=== PATIENT | male | born 1955 | race Caucasian/White ===

== ENCOUNTER 2016-11-07 09:28 | Emergency (ER) | payer BC ==
[2016-11-07 10:14] VITALS: BP 140/84
--- NOTE | 2016-11-07 10:30 | UC ---
Hand/Wrist HPI - HPI Summary HPI Summary: JAMMED RIGHT 3RD FINGER ON WOOD STOVE YESTERDAY MORNING WHILE FILLING IT. FINGER IS SWOLLEN AND PAINFUL. - History Of Current Complaint Chief Complaint: UCUpperExtremity Stated Complaint: FINGER INJURY Time Seen by Provider: 11/07/16 10:24 Hx Obtained From: Patient Onset/Duration: Sudden Onset, Lasting Hours, Still Present Severity Initially: Mild Severity Currently: Mild Pain Intensity: 1 Pain Scale Used: 0-10 Numeric Character Of Pain: Sharp Aggravating Factor(s): Movement Alleviating: Rest Associated Signs And Symptoms: Positive: Swelling, Redness Related History: Dominant Hand Right - Allergies/Home Medications Allergies/Adverse Reactions: Allergies Allergy/AdvReac Type Severity Reaction Status Date / Time Abatacept [From Orencia] Allergy Unknown SWELLING Verified 02/27/16 08:57 AROUND MOUTH NECK Levofloxacin [From Levaquin] Allergy Unknown ACHILLES Verified 02/27/16 08:57 TENDON RUPTURED Infliximab [From Remicade] Allergy SWELLING Verified 02/27/16 08:57 AROUND MOUTH & NECK PMH/Surg Hx/FS Hx/Imm Hx - Additional Past Medical History Additional PMH: RHEUMATOID ARTHRITIS, BPH Cardiovascular History Of: Denies: Pacemaker/ICD Neurological History Of: Reports: TIA - Xs 2 - 2008 ( MRI & CT DONE) - Surgical History Surgical History: Yes Surgery Procedure, Year, and Place: 3- INGUINAL HERNIA; CARPAL TUNNEL- Rt; ACHILLES TENDON REPAIR-Lt; TONSILECTOMY; - Family History Known Family History: Negative: Hypertension - Social History Alcohol Use: 3-4 beer/week Substance Use Type: None Smoking Status (MU): Never Smoked Tobacco Have You Smoked in the Last Year: No - Immunization History Most Recent Influenza Vaccination: 2016/2017 Review of Systems Constitutional: Negative Skin: Bruising Respiratory: Negative Cardiovascular: Negative Gastrointestinal: Negative Musculoskeletal: Arthralgia, Decreased ROM, Edema All Other Systems Reviewed And Are Negative: Yes Physical Exam Triage Information Reviewed: Yes Appearance: Well-Appearing, No Pain Distress, Well-Nourished Vital Signs: Initial Vital Signs Temp 97.8 F 11/07/16 10:06 Pulse 68 11/07/16 10:06 Resp 16 11/07/16 10:06 BP 140/84 11/07/16 10:06 Pulse Ox 99 11/07/16 10:06 Vital Signs Reviewed: Yes Eyes: Positive: Conjunctiva Clear ENT: Positive: Hearing grossly normal Neck: Positive: Supple Respiratory: Positive: No respiratory distress, No accessory muscle use Cardiovascular: Positive: Pulses Normal Abdomen Description: Positive: Soft Musculoskeletal: Positive: ROM Limited @ - RIGHT 3RD FINGER, Edema @ - RIGHT 3RD FINGER, Other: - TTP RIGHT 3RD FINGER OVER PROXIMAL PHALANX AND PIP JOINT Neurological: Positive: Alert Psychological: Positive: Age Appropriate Behavior Skin: Positive: Other - RIGHT 3RD FINGER ERYTHEMATOUS AND BRUISED. Negative: rashes Diagnostics - Radiology RIGHT 3RD FINGER XRAY Xray Interpretation: No Acute Changes Radiology Interpretation Completed By: ED Physician Hand/Wrist Course/Dx - Differential Dx/Diagnosis Provider Diagnoses: RIGHT 3RD FINGER SPRAIN Discharge - Discharge Plan Condition: Stable Disposition: HOME Patient Education Materials: Finger Sprain (ED) Referrals: Teressa Lemos MD [Primary Care Provider] - If Needed Additional Instructions: XRAY TODAY NEGATIVE FOR FRACTURE OR DISLOCATION ON MY INITIAL INTERPRETATION. WE WILL CALL YOU IF RADIOLOGY READ DIFFERS. WEAR SPLINT AT NIGHT AND DURING THE DAY NEEDED FOR COMFORT AND PROTECTION.
--- NOTE | 2016-11-07 11:08 | RAD ---
HISTORY: Trauma, swelling, right third digit trauma COMPARISONS: None VIEWS: 3, Frontal, lateral, and oblique views of the third digit of the right hand FINDINGS: BONE DENSITY: Normal. BONES: There is linear lucency, consistent with a nondisplaced fracture along the volar plate of the base of the middle phalanx of the third digit at the PIP joint. JOINTS: There is osteoarthritis of the DIP joint and MCP joints ALIGNMENT: There is no dislocation. SOFT TISSUES: Unremarkable. OTHER FINDINGS: None. IMPRESSION: 1. PROBABLE NONDISPLACED FRACTURE OF THE BASE OF THE MIDDLE PHALANX OF THE THIRD DIGIT AT THE PIP JOINT. 2. OSTEOARTHRITIS.
== END 2016-11-07 11:00 | disposition home or self-care (01) ==
LOC: UCEAST 09:28
DX: S63.632A Sprain of interphalangeal joint of right middle finger, initial encounter (principal); W23.1XXA Caught, crushed, jammed, or pinched between stationary objects, initial encounter; Y93.9 Activity, unspecified; Y92.9 Unspecified place or not applicable; M19.041 Primary osteoarthritis, right hand; Z88.1 Allergy status to other antibiotic agents; Z88.8 Allergy status to other drugs, medicaments and biological substances; M06.9 Rheumatoid arthritis, unspecified; N40.0 Benign prostatic hyperplasia without lower urinary tract symptoms
CPT/HCPCS: 73140; 99212; G0463

== ENCOUNTER 2017-03-04 15:32 | Emergency (ER) | payer BC ==
[2017-03-04 16:02] VITALS: BP 152/89
[2017-03-04] MEDS ORDERED: Ketorolac INJ* 30 MG/ML 1 ML VIAL IM ONE (16:06)
--- NOTE | 2017-03-04 16:25 | RAD ---
INDICATION: Right shoulder injury. TECHNIQUE: 3 views of the right shoulder were obtained. FINDINGS: The bones are in normal alignment. No fracture is seen. There is mild osteoarthritic change in the acromioclavicular joint. IMPRESSION: NO EVIDENCE OF FRACTURE.
--- NOTE | 2017-03-04 16:50 | UC ---
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 Pain with arm movement, denies any numbness, tingling, or weakness in R arm or hand. No hx of R shoulder fx or sx. - History of Current Complaint Chief Complaint: UCUpperExtremity Stated Complaint: SHOULDER INJURY Time Seen by Provider: 03/04/17 16:33 Hx Obtained From: Patient Onset/Duration: Sudden Onset Timing: Constant Severity Initially: Severe Severity Currently: Moderate Character: Dull, Aching, Stiffness Aggravating Factor(s): Movement, Lifting, Extension Alleviating Factor(s): Rest Associated Signs And Symptoms: Positive: Swelling, Bruising Related History: Dominant Hand Right - Allergies/Home Medications Allergies/Adverse Reactions: Allergies Allergy/AdvReac Type Severity Reaction Status Date / Time Abatacept [From Orencia] Allergy Unknown SWELLING Verified 03/04/17 16:02 AROUND MOUTH NECK Levofloxacin [From Levaquin] Allergy Unknown ACHILLES Verified 03/04/17 16:02 TENDON RUPTURED Infliximab [From Remicade] Allergy SWELLING Verified 03/04/17 16:02 AROUND MOUTH & NECK PMH/Surg Hx/FS Hx/Imm Hx Endocrine History Of: Denies: Diabetes Cardiovascular History Of: Denies: Cardiac Disorders, Hypertension, Pacemaker/ICD Respiratory History Of: Denies: COPD Neurological History Of: Reports: TIA - Xs - 2008 ( MRI & CT DONE) - Surgical History Surgical History: Yes Surgery Procedure, Year, and Place: 3- INGUINAL HERNIA; CARPAL TUNNEL- Rt; ACHILLES TENDON REPAIR-Lt; TONSILECTOMY; - Family History Known Family History: Negative: Hypertension - Social History Occupation: Employed Full-time Lives: With Family Alcohol Use: Occasionally Substance Use Type: None Smoking Status (MU): Never Smoked Tobacco Have You Smoked in the Last Year: No - Immunization History Most Recent Influenza Vaccination: 2015/2016 Review of Systems Constitutional: Negative Skin: Negative Eyes: Negative ENT: Negative Respiratory: Negative Cardiovascular: Negative Gastrointestinal: Negative Genitourinary: Negative Motor: Decreased ROM - R shoulder Neurovascular: Negative Musculoskeletal: Negative Neurological: Negative Psychological: Negative All Other Systems Reviewed And Are Negative: Yes Physical Exam Triage Information Reviewed: Yes Appearance: Well-Appearing, Well-Nourished, Pain Distress - mild Vital Signs: Initial Vital Signs Temp 99.2 F 03/04/17 15:57 Pulse 87 03/04/17 15:57 Resp 16 03/04/17 15:57 BP 152/89 03/04/17 15:57 Pulse Ox 99 03/04/17 15:57 Vital Signs Reviewed: Yes Eye Exam: Normal Eyes: Positive: Conjunctiva Clear ENT Exam: Normal ENT: Positive: Normal ENT inspection, Hearing grossly normal, Pharynx normal, TMs normal Dental Exam: Normal Neck exam: Normal Neck: Positive: Supple, Nontender, No Lymphadenopathy Respiratory Exam: Normal Respiratory: Positive: Chest non-tender, Lungs clear, Normal breath sounds, No respiratory distress, No accessory muscle use Cardiovascular Exam: Normal Cardiovascular: Positive: RRR Musculoskeletal Exam: Other Musculoskeletal: Positive: Strength Intact, ROM Intact - able to actively extend and abduct R shoulder, resisted R shoulder abduction intact, ROM with pain Neurological Exam: Normal Neurological: Positive: Alert Psychological Exam: Normal Skin Exam: Normal Shoulder Course/Dx - Differential Dx/Diagnosis Provider Diagnoses: R shoulder contusion Discharge - Discharge Plan Condition: Stable Disposition: HOME Patient Education Materials: Contusion in Adults (ED) Referrals: Teressa Lemos MD [Primary Care Provider] - Sidney Rey MD [Medical Doctor] - 1 Week Additional Instructions: As we discussed, you do not need any follow-up if your symptoms rapidly improve. If you are not able to resume your usual activities by the end of the weekend, I recommend you see the orthopedist listed here. Take the sling off frequently and let your arm go through a range of motion using gravity as I showed you. If you can, try to stop all sling use after 3 days.
== END 2017-03-04 16:55 | disposition home or self-care (01) ==
LOC: UCEAST 15:32
DX: S40.011A Contusion of right shoulder, initial encounter (principal); W20.8XXA Other cause of strike by thrown, projected or falling object, initial encounter; Y93.89 Activity, other specified; Y92.9 Unspecified place or not applicable; Z86.73 Personal history of transient ischemic attack (TIA), and cerebral infarction without residual deficits; Z88.8 Allergy status to other drugs, medicaments and biological substances
CPT/HCPCS: 99211; G0463; J1885

== ENCOUNTER 2017-08-27 11:26 | Day surgery (SDC) | payer BC ==
[~2017-08-27 11:26] MED LIST: Buffered Lidocaine 0.9% SYRIN* 5 ML/SYR SYRINGE INTRADERM ONE; Metoclopramide TAB* 10 MG ONE; Metoclopramide TAB* 10 MG PO ONE
[2017-08-27] MEDS ORDERED: Ondansetron INJ* 2 MG/ML VIAL ONE (12:13)
[2017-08-27] MEDS ORDERED: fentaNYL* 50 MCG/ML 2 ML VIAL (100 MCG VIAL) ONE (12:13)
[2017-08-27] MEDS ORDERED: Dexamethasone IV* 4 MG/ML 1 ML (4 MG) ONE (12:13)
[2017-08-27] MEDS ORDERED: Propofol* 10 MG/ML 20 ML BTL IV PUSH ONE (12:13)
[2017-08-27] MEDS ORDERED: Lidocaine 2% PF * 5 ML VIAL ONE (12:13)
[2017-08-27] MEDS ORDERED: Midazolam* 1 MG/ML 5 ML VIAL (5 MG) ONE (12:14)
[2017-08-27] MEDS ORDERED: Bupivacaine 0.25% SDV* 30 ML ONE (12:36)
[2017-08-27] MEDS ORDERED: fentaNYL* 50 MCG/ML 2 ML VIAL (100 MCG VIAL) IV PRN (12:51)
[2017-08-27] MEDS ORDERED: Ondansetron INJ* 2 MG/ML VIAL IV PRN (12:51)
[2017-08-27] MEDS ORDERED: oxyCODONE/Acetamin 5/325 MG* TAB PO PRN (12:51)
[2017-08-27 13:39] VITALS: BP 110/80
--- NOTE | 2017-08-28 02:52 | OP ---
OPERATIVE REPORT: DATE OF OPERATION: 08/27/17 - TIMO DATE OF : 53 SURGEON: Jeremy Reyez MD. ASSISTANTS: REGGIE Sierra. ANESTHESIOLOGIST: Dr. Espinal. ANESTHESIA: Local MAC. PRE-OP DIAGNOSIS: Left dorsal wrist cyst. POST-OP DIAGNOSIS: Left dorsal wrist cyst most consistent with an inclusion cyst. OPERATIVE PROCEDURE: Excision of left dorsal wrist deep cyst. ESTIMATED BLOOD LOSS: 2 mL. COMPLICATIONS: None. FINDINGS: Mass with sinus tract, it was draining some milky white fluid, it was most consistent with an inclusion cyst. DESCRIPTION OF PROCEDURE: Dany was seen in the preoperative holding area. The correct side, site, and procedure were identified. We came back to the operating room where he got some anesthesia. I then infiltrated the operative area with 0.25% plain Marcaine. The arm was prepped and draped in the usual fashion. A time- out was performed. I began by exsanguinating the arm with the Esmarch and the tourniquet was inflated to 250 mmHg. I then made a longitudinal 2 cm incision directly over the mass. The interval between the dermis and the cyst was identified. The reactive zone around the mass was identified and the mass was ellipsed out with a kotlik blade. It went down deep right in the region between the second and third dorsal compartment tendons. I went ahead and shelled it out. The mass was fully excised. It was handed off as a specimen. I then ellipsed out the skin where the sinus tract had been. The wound was copiously irrigated. The skin was closed with 4-0 nylon suture. The wound was dressed with Xeroform, 4x4 's, sterile Webril and an Randy bandage. The tourniquet was deflated. He was woken up and taken to the recovery room in stable condition. [id number]/[facility] #: [id number] MTDD
== END 2017-08-27 14:05 | disposition home or self-care (01) ==
LOC: OREAST 11:26
PROVIDERS: ATTEND Orthopaedic Surgery Hand Surgery
DX: L72.0 Epidermal cyst (principal); M06.9 Rheumatoid arthritis, unspecified; Z79.899 Other long term (current) drug therapy; M72.9 Fibroblastic disorder, unspecified; I48.91 Unspecified atrial fibrillation; I10 Essential (primary) hypertension
CPT/HCPCS: 88305; A9270-GY; J1100; J2250; J2405; J2704; J3010

== ENCOUNTER 2018-05-14 05:37 | Observation (INO) | payer BC ==
--- NOTE | 2018-05-14 06:00 | ED ---
HPI Chest Pain - HPI Summary HPI Summary: Pt is a 63 y/o M w/ c/o left-sided chest pain radiating to left shoulder and left side of neck. Pt notes pain onset yesterday morning and describes initial pain as slight. However, before going to bed, pain had worsened in the evening and more so upon waking up this morning. Pain is rated 5/10 on triage. He notes that deep breaths are painful but denies SOB. Pt reports getting out of bed in the morning as painful and notes lying down lessen pain somewhat. Pt states he slept fine. He denies nausea, diaphoresis, and light-headedness. 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 Pt uses marijuana but denies smoking cigarettes. - History of Current Complaint Chief Complaint: EDChestWallPain Time Seen by Provider: 05/14/18 05:52 Onset/Duration: Started Days Ago - one day ago in the morning, Worse Since Timing: Constant Initial Severity: Mild Current Severity: Moderate Pain Intensity: 5 Pain Scale Used: 0-10 Numeric - 5/10 Chest Pain Radiates: Yes Chest Pain Radiates To:: Shoulder - left, Neck - leftside Character: Other: - deep breaths cause pain Aggravating Factor(s): Other: - deep breaths, getting out of bed Alleviating Factor(s): Position - lying in a supine position Associated Signs and Symptoms: Positive: Chest Pain - leftside, Other: - Pain from getting out of bed and deep breaths. Chest pain radiates to left shoulder and left side of neck.. Negative: Shortness of Breath, Lightheadedness, Diaphoresis, Nausea - Allergy/Home Medications Allergies/Adverse Reactions: Allergies Allergy/AdvReac Type Severity Reaction Status Date / Time abatacept [From Orencia] Allergy Unknown Verified 05/14/18 05:44 Reaction Details infliximab [From Remicade] Allergy Unknown Verified 05/14/18 05:45 Reaction Details levofloxacin [From Levaquin] Allergy Unknown Verified 05/14/18 05:44 Reaction Details PMH/Surg Hx/FS Hx/Imm Hx Endocrine/Hematology History: Denies: Hx Diabetes Cardiovascular History: Denies: Hx Hypertension, Hx Pacemaker/ICD Respiratory History: Reports: Other Respiratory Problems/Disorders - Hx of bronchitis and pericarditis Denies: Hx Chronic Obstructive Pulmonary Disease (COPD) GI History: Reports: Hx Gastroesophageal Reflux Disease - ON MEDICATION FOR, Hx Hiatal Hernia, Other GI Disorders - 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 Musculoskeletal History: Reports: Hx Arthritis - HANDS, RIGHT GREAT TOE Denies: Hx Scoliosis Sensory History: Reports: Hx Cataracts - BILATERAL, Hx Contacts or Glasses - READING GLASSES Denies: Hx Hearing Aid Opthamlomology History: Reports: Hx Cataracts - BILATERAL, Hx Contacts or Glasses - READING GLASSES Neurological History: Reports: Hx Transient Ischemic Attacks (TIA) - Xs 2 - 2008 ( MRI & CT DONE) Denies: Hx Headaches, Other Neuro Impairments/Disorders Psychiatric History: Denies: Hx Panic Disorder - Surgical History Surgery Procedure, Year, and Place: 3- INGUINAL HERNIA; CARPAL TUNNEL- Rt; ACHILLES TENDON REPAIR-Lt; TONSILECTOMY; Hx Anesthesia Reactions: No Infectious Disease History: No Infectious Disease History: Denies: Hx Clostridium Difficile, Hx Hepatitis, Hx Human Immunodeficiency Virus (HIV), Hx of Known/Suspected MRSA, Hx Shingles, Hx Tuberculosis, Traveled Outside the [place] in Last 30 Days - Family History Known Family History: Negative: Hypertension - Social History Alcohol Use: Daily Alcohol Amount: @2 beers daily Substance Use Type: Reports: Marijuana Substance Use Comment - Amount & Last Used: ONCE IN A WHILE-LAST USED 05/07/18 Smoking Status (MU): Never Smoked Tobacco Have You Smoked in the Last Year: No Review of Systems Negative: Skin Diaphoresis Positive: Other - leftside chest pain radiating to left shoulder and left side of neck Positive: Other - pain from deep breaths . Negative: Shortness Of Breath Negative: Nausea Positive: Other - pain from getting out of bed Neurological: Other - NEGATIVE: light-headedness All Other Systems Reviewed And Are Negative: Yes Physical Exam - Summary Physical Exam Summary: Appearance: Well-appearing, Well-nourished, lying in bed comfortably Skin: Warm, dry, no obvious rash Eyes: sclera anicteric, no conjunctival pallor ENT: mucous membranes moist, pharynx appears normal Neck: Supple, nontender Respiratory: Clear to auscultation, no signs of respiratory distress Cardiovascular: Normal S1, S2. No murmurs. Normal distal pulses in tibial and radial bilaterally. Abdomen: Soft, nontender, normal active bowel sounds present Musculoskeletal: Normal, Strength/ROM Intact. No tenderness to chest wall. Neurological: A&Ox3, awake and alert, mentation is normal, speech is fluent and appropriate Psychiatric: affect is normal, does not appear anxious or depressed Triage Information Reviewed: Yes Vital Signs On Initial Exam: Initial Vitals Temp Pulse Resp BP Pulse Ox 98.1 F 83 17 160/104 98 05/14/18 05:40 05/14/18 05:40 05/14/18 05:40 05/14/18 05:40 05/14/18 05:40 Vital Signs Reviewed: Yes Diagnostics - Vital Signs Vital Signs Temp Pulse Resp BP Pulse Ox 05/14/18 05:41 84 23 160/104 96 05/14/18 05:40 98.1 F 83 17 160/104 98 - Laboratory Result Diagrams: 05/14/18 06:13 Lab Statement: Any lab studies that have been ordered have been reviewed, and results considered in the medical decision making process. - EKG 0541 Cardiac Rate: NL EKG Rhythm: Sinus Rhythm EKG Interpretation: Rate of 84 BPM. Normal EKG Discharge - Discharge Plan Referrals: Teressa Lemos MD [Primary Care Provider] -
--- OUTSIDE RECORDS SUMMARY | 2018-05-14 06:16 | XMS REPORT | Continuity of Care Document ---
:1955 Author Organization [facility] Care Team Providers Name Role Phone KATHRYN SINGH Admitting Physician KATHRYN SINGH Attending Physician JUSTIN COLLINS Primary Care Physician Allergies and Intolerances Code Code Allergy Type Reaction Severity Start End Date Status System Substance Date 10892 RXNorm Levofloxacin Drug Unknown Active allergy (disorder) Medications RxNorm Medication Dose Route Instructions Start Date End Date Status 1191 Aspirin 81 mg oral orally every day Active 590674 Finasteride 1 MG 1 mg oral orally every day Active Oral Tablet 081407 Folic Acid 1 MG 1 mg oral orally every day Active Oral Tablet 296976 lansoprazole 15 MG 15 mg oral orally every day Active Delayed Release Oral Capsule 6858 Methotrexate 12.5 mg oral orally every week Active Cephalexin Oral 500 mg oral orally every 12 Completed hours (7 days) Problems Code Code System Problem Name Start Date End Date Status 86130587 SNOMED-CT Rheumatoid arthritis Active 7974526 SNOMED-CT Pericarditis U Active carpal tunnel surgery left Active achilles tendon repair U Active Procedures Code Code System Procedure Date 40742825 SNOMED CT Hernia repair U 86630985 SNOMED CT Tonsillectomy and adenoidectomy U Results No data in the system Social History Code Code System Social History Observation Description Dates Observed 874878132 SNOMED CT Current Smoking Status Never smoker UNK AdministrativeGender Sex Assigned At Unknown Vital Signs Code Code System Vitals Value Date 8310-5 LOINC Body Temperature 98.1 [degF] 04/30/2018 8865-8 LOINC Pulse Rate 70 {beats}/min 04/30/2018 9279-1 LOINC Respiratory Rate 18 /min 04/30/2018 32314-1 INC O2% BldC Oximetry 95 % 04/30/2018 8480-6 INC BP Systolic 153 mm[Hg] 04/30/2018 8462-4 INC BP Diastolic 80 mm[Hg] 04/30/2018 8302-2 INC Height 70 [in_i] 04/30/2018 74621-0 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 Supporting Document Name Address Phone No Directive Type 04/30/2018 8:40:00 Not Specified Not Specified Not Specified None No specified AM *RHIO - CONSENT IS YES Directive Type Effective Date Finishing Room Supervisor Notes Supporting Document Name Address Phone No Directive Type 04/22/2018 Not Specified Not Specified Not Specified None No specified 10:38:54 AM Family History Family History Unknown Functional Status Code Functional Condition Code System Date Status Independent adls SNOMED CT 04/30/2018 Active Appears well nourished/hydrated SNOMED CT 04/30/2018 Active Immunizations Vaccine Code Code System Vaccine Name Date Status 115 CVX tetanus toxoid, reduced diphtheria 03/02/2012 Completed toxoid, and acellular pertussis vaccine, adsorbed 115 CVX tetanus toxoid, reduced diphtheria 04/22/2018 Completed toxoid, and acellular pertussis vaccine, adsorbed Medical Equipment No data in the system Mental Status Code Cognitive Condition Code System Date Status Perrl SNOMED CT 04/30/2018 Active Oriented x [address] 04/30/2018 Active No acute distress SNOMED CT 04/30/[address] 04/30/2018 Active Assessment and Plan Assessments No data in the systemPlan Of Treatment No data in the systemPending Tests No data in the system Hospital Discharge Instructions No data in the system Reason for Visit Reason for Visit Suture Removal
--- OUTSIDE RECORDS SUMMARY | 2018-05-14 06:16 | XMS REPORT | Continuity of Care Document ---
:1955 Author Organization [facility] Care Team Providers Name Role Phone KATHRYN SINGH Admitting Physician KATHRYN SINGH Attending Physician JUSTIN COLLINS Primary Care Physician Allergies and Intolerances Code Code Allergy Type Reaction Severity Start End Date Status System Substance Date 45068 RXNorm Levofloxacin Drug Unknown Active allergy (disorder) Medications RxNorm Medication Dose Route Instructions Start Date End Date Status 1191 Aspirin 81 mg oral orally every day Active Cephalexin Oral 500 mg oral orally every 12 Active hours (7 days) 359226 Finasteride 1 MG 1 mg oral orally every day Active Oral Tablet 905987 Folic Acid 1 MG 1 mg oral orally every day Active Oral Tablet 225423 lansoprazole 15 MG 15 mg oral orally every day Active Delayed Release Oral Capsule 6851 Methotrexate 12.5 mg oral orally every week Active Problems Code Code System Problem Name Start Date End Date Status 39712956 SNOMED-CT Rheumatoid arthritis Active 6950162 SNOMED-CT Pericarditis U Active carpal tunnel surgery left Active achilles tendon repair U Active Procedures Code Code System Procedure Date 86552475 SNOMED CT Hernia repair U 31210279 SNOMED CT Tonsillectomy and adenoidectomy U Results No data in the system Social History Code Code System Social History Observation Description Dates Observed 758276335 SNOMED CT Current Smoking Status Never smoker UNK AdministrativeGender Sex Assigned At Unknown Vital Signs Code Code System Vitals Value Date 8865-8 LOINC Pulse Rate 93 {beats}/min 04/22/2018 8480-6 LOINC BP Systolic 135 mm[Hg] 04/22/2018 8462-4 LOINC BP Diastolic 90 mm[Hg] 04/22/2018 8310-5 LOINC Body Temperature 97.4 [degF] 04/22/2018 9279-1 LOINC Respiratory Rate 20 /min 04/22/2018 8302-2 LOINC Height 70 [in_i] 04/22/2018 15336-7 LOINC Weight 84.09 kg 04/22/2018 3140-1 LOINC Body surface area Derived from formula 2.02 m2 04/22/2018 00223-0 LOINC BMI (Body Mass Index) 26.8 kg/m2 04/22/2018 Goals Section No data in the system Health Concerns No data in the systemEncounter Diagnosis Date Code Code System Diagnosis Status S51.011A ICD10 LACERATION W/O FB RT ELBOW INITIAL Active Advance Directives PT STATES NO ADVANCE DIRECTIVES Directive Type Effective Date Leasing Assistant Notes Supporting Document Name Address Phone No Directive Type 04/22/2018 Not Specified Not Specified Not Specified None No specified 10:55:00 AM *RHIO - CONSENT IS YES Directive Type Effective Date Leasing Assistant Notes Supporting Document Name Address Phone No Directive Type 04/22/2018 Not Specified Not Specified Not Specified None No specified 10:38:54 AM Family History No data in the system Functional Status No data in the system Immunizations Vaccine Code Code System Vaccine Name Date Status 115 CVX tetanus toxoid, reduced diphtheria 03/02/2012 Completed toxoid, and acellular pertussis vaccine, adsorbed 115 CVX tetanus toxoid, reduced diphtheria 04/22/2018 Completed toxoid, and acellular pertussis vaccine, adsorbed Medical Equipment No data in the system Mental Status Code Cognitive Condition Code System Date Status Mild distress SNOMED CT 04/22/[address] 04/22/2018 Active Assessment and Plan Assessments No data in the systemPlan Of Treatment No data in the systemPending Tests No data in the system Hospital Discharge Instructions No data in the system Reason for Visit Reason for Visit Elbow Abrasion
--- OUTSIDE RECORDS SUMMARY | 2018-05-14 06:17 | XMS REPORT ---
:1955 External Reference #:[id number] Author Organization [email or web address] Address [address] [address] [place] [address] [place] [address] Phone [phone] Care Team Providers Name Role Phone Teressa Masters MD Primary Care Physician Unavailable Payers Type Date Identification Numbers Payment Provider Subscriber Commercial Effective: Policy Number: BS Facets Dorothy Read 2011 [id number] PayID: [id number] [address] [address] [place] [address] Problems Date Description Provider Status Onset: 02/20/2011 Rheumatoid arthritis William Tay M.D. Active Note: Very high grade involvement resistant to tx, with pericardial involvement leading to A fib. Good response to Rittuximab, last tx May 2012 Onset: 09/28/2012 Medications Systems Tester (Current) Use William Tay M.D. Active Encounter Onset: 12/23/2012 Acute pericarditis William Tay M.D. Active Onset: 12/23/2012 Amnesia William Tay M.D. 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 Active myelopathy Onset: 10/06/2014 Taking medication William Tay M.D. Active Onset: 10/06/2014 Fasciitis William Tay M.D. Active Onset: 10/01/2015 Rheumatoid arthritis of multiple Zsofia Valente, ANIMAL BIOLOGIST Active joints Onset: 03/29/2015 Brachial neuritis Timo Singh M.D. 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 [employer] ETOH Use Denies alcohol use Smoking Patient has never smoked Recreational Drug Use Denies Drug Use Exercise Type/Frequency Exercises sporadically Allergies, Adverse Reactions, Alerts Date Description Reaction Status Severity Comments 12/26/2010 Levaquin ACHILLES TENDON RUPTURED active Moderate to Severe 12/26/2010 Remicade SWELLING active Moderate to Severe 12/26/2010 Orencia SWELLING active Moderate to Severe Medications Medication Date Status Form Strength Qnty SIG Indications Ordering Provider Tramadol Active Tablets 37.5-325mg 30tabs 1-2 tab Jeremy Hydrochloride/A 017 by mouth MD Dereje cetaminophen every 4-6 hours as needed Methotrexate Active Tablets 2.5mg 60tabs Take 5 Z79.899 Zsofia 015 Tablets Valente, Once ANIMAL BIOLOGIST Weekly M05.69 M06.89 Flector 10/06/2014 Active Patches 1.3% 180units prn 729.4 William Tay M.D. Folic Acid 12/26/2010 Active Tablets 1mg 90tabs Take 1 Z79.899 Zsofia Tablet Valente, Daily ANIMAL BIOLOGIST Asa Active 81mg 30units 1 po qd Unknown Fish Oil Active Capsules 1000mg 30caps 1 po qd William Tay M.D. Finasteride Active Tablets 5mg 90tabs 1 po qd Unknown Osteo Bi-Flex Active Tablets 2 tabs po Unknown Triple Strength daily With 5-Loxin Prostate Active Capsules 2 caps po Unknown Therapy Complex daily Lansoprazole Active Capsules 15mg 90caps Take [address] Capsule Valente, Daily ANIMAL BIOLOGIST Rituxan 01/05/2017 - Hx Solution 500mg/ [id number] Not Z79.899 Zsofia 07/16/2017 50ML Taking AT Valente, This Time ANIMAL BIOLOGIST M06.89 M05.69 Methotrexate 03/19/2016 - Hx Tablets 2.5mg 20tabs 5 tbs by Kenroy 04/02/2016 mouth once Mary, every week Tete Augmentin 02/01/2016 - Hx Tablets 500-125m 20tabs 1 tab by Zsofia 04/03/2016 g mouth Valente, ANIMAL BIOLOGIST twice a day with food for 10 days Augmentin 11/23/2015 - Hx Tablets 500-125m 20tabs 1 tab by Zsofia 12/31/2015 g mouth Valente, ANIMAL BIOLOGIST twice a day with food for 10 days Fluticasone 11/23/2015 - Hx Suspension 50mcg/Ac 16gm 1 act each Zsofia Propionate 12/31/2015 t nostril Valente, ANIMAL BIOLOGIST twice daily Methotrexate 12/26/2010 - Hx Tablets 2.5mg 65tabs 5 tabs 1x 714 Zsofia 03/16/2015 per week .0 Valente ANIMAL BIOLOGIST Rituxan 12/26/2010 - Hx Concentrate 10mg/ml [id number] 1000mg iv Z79 William 01/05/2017 every 2 .89 Endo, M.D. weeks for 9 2 doses ( q 8 - 9 mo) M06.89 Omeprazole - Hx Capsules DR 20mg 90caps 1 po qd Unknown 03/28/2015 Prostrat - Hx Unknown 03/15/2013 Uroxatral - Hx Tablets ER 24HR 10mg 1 tab po qd Unknown 08/25/2013 Osteobioflex - Hx Unknown 03/15/2013 Immunizations CPT Code Status Date Vaccine Lot # [id number] Given 07/16/2017 Influenza Virus Vaccine, Quadrivalent, Split, [id number] Preservative Free [id number] Given 01/05/2017 Zoster (Zostavax) [id number] Given 10/06/2016 Pneumonia Vaccine [id number] 53725 Given 10/01/2015 Pneumococcal Conjugate Vaccine 13 Valent For [id number] Intramuscular Use [id number] Given 08/25/2013 Flu Vaccine Split Virus Preservative Free For [id number] Indiv [id number] Older Vital Signs Date Vital Result Comment 04/29/2018 Weight 185.25 lb Heart Rate 86 /min BP Systolic Sitting 134 mmHg BP Diastolic Sitting 90 mmHg 01/25/2018 Weight 190.00 lb Heart Rate 85 /min BP Systolic Sitting 124 mmHg BP Diastolic Sitting 82 mmHg O2 % BldC Oximetry 98 % 10/19/2017 Height 70 inches 5'10" Weight 189.00 lb Heart Rate 74 /min BP Systolic Sitting 128 mmHg BP Diastolic Sitting 78 mmHg Respiratory Rate 14 /min Pain Level 1 BMI (Body Mass Index) 27.1 kg/m2 10/02/2017 Height 70 inches 5'10" Weight 185.00 lb Heart Rate 72 /min Respiratory Rate 16 /min Body Temperature 97.1 F Pain Level 0 BMI (Body Mass Index) 26.5 kg/m2 09/09/2017 Height 70 inches 5'10" Weight 185.00 lb BP Systolic 112 mmHg BP Diastolic 72 mmHg Body Temperature 97.1 F Pain Level 0 BMI (Body Mass Index) 26.5 kg/m2 08/31/2017 Height 70 inches 5'10" Weight 185.00 lb Heart Rate 77 /min BP Systolic 131 mmHg BP Diastolic 89 mmHg Body Temperature 97.6 F BMI (Body Mass Index) 26.5 kg/m2 07/29/2017 Height 69.5 inches 5'9.50" Weight 188.00 lb Heart Rate 84 /min BP Systolic 117 mmHg BP Diastolic 84 mmHg Respiratory Rate 17 /min Body Temperature 97.4 F BMI (Body Mass Index) 27.4 kg/m2 07/16/2017 Weight 188.50 lb Heart Rate 65 /min BP Systolic Sitting 120 mmHg BP Diastolic Sitting 80 mmHg Pain Level 0 O2 % BldC Oximetry 92 % 04/13/2017 Height 69.50 inches 5'9.50" Weight 180.25 lb Heart Rate 73 /min BP Systolic 120 mmHg BP Diastolic 80 mmHg O2 % BldC Oximetry 98 % BMI (Body Mass Index) 26.2 kg/m2 01/05/2017 Height 69.50 inches 5'9.50" Weight 188.19 lb Heart Rate 76 /min BP Systolic 124 mmHg BP Diastolic 80 mmHg Pain Level 2 BMI (Body Mass Index) 27.4 kg/m2 10/06/2016 Height 69.50 inches 5'9.50" Weight 193.44 lb Heart Rate 68 /min BP Systolic 120 mmHg BP Diastolic 70 mmHg O2 % BldC Oximetry 98 % 1.5 BMI (Body Mass Index) 28.2 kg/m2 07/04/2016 Height 69.50 inches 5'9.50" Weight 186.00 lb Heart Rate 80 /min BP Systolic Sitting 130 mmHg BP Diastolic Sitting 80 mmHg Body Temperature 97.4 F Pain Level 0 BMI (Body Mass Index) 27.1 kg/m2 04/03/2016 Height 69.50 inches 5'9.50" Weight 183.00 lb Heart Rate 70 /min BP Systolic Sitting 138 mmHg BP Diastolic Sitting 80 mmHg Body Temperature 97.3 F Pain Level 1 BMI (Body Mass Index) 26.6 kg/m2 12/31/2015 Height 69.50 inches 5'9.50" Weight 185.00 lb Heart Rate 82 /min BP Systolic 119 mmHg BP Diastolic 82 mmHg Body Temperature 97.6 F O2 % BldC Oximetry 99 % BMI (Body Mass Index) 26.9 kg/m2 10/01/2015 Height 69.50 inches 5'9.50" Weight 183.00 lb Heart Rate 72 /min BP Systolic Sitting 134 mmHg BP Diastolic Sitting 80 mmHg Pain Level 0 BMI (Body Mass Index) 26.6 kg/m2 06/28/2015 Height 69.50 inches 5'9.50" Weight 178.00 lb Heart Rate 82 /min BP Systolic Sitting 118 mmHg BP Diastolic Sitting 74 mmHg Pain Level 0 BMI (Body Mass Index) 25.9 kg/m2 05/25/2015 Height 69.50 inches 5'9.50" Weight 179.00 lb Heart Rate 60 /min BP Systolic Sitting 130 mmHg BP Diastolic Sitting 90 mmHg Body Temperature 97.1 F Pain Level 0 BMI (Body Mass Index) 26.1 kg/m2 03/29/2015 Height 69.50 inches 5'9.50" Weight 177.00 lb Heart Rate 76 /min BP Systolic Sitting 140 mmHg BP Diastolic Sitting 80 mmHg Pain Level 0 BMI (Body Mass Index) 25.8 kg/m2 03/28/2015 Height 69.50 inches 5'9.50" Weight 180.00 lb Heart Rate 72 /min BP Systolic Sitting 136 mmHg BP Diastolic Sitting 80 mmHg Pain Level 1 BMI (Body Mass Index) 26.2 kg/m2 12/29/2014 Height 69.50 inches 5'9.50" Weight 176.38 lb Heart Rate 66 /min BP Systolic Sitting 118 mmHg BP Diastolic Sitting 70 mmHg Pain Level 0 BMI (Body Mass Index) 25.7 kg/m2 10/06/2014 Height 69.50 inches 5'9.50" Weight 178.00 lb Heart Rate 66 /min BP Systolic Sitting 142 mmHg BP Diastolic Sitting 64 mmHg Pain Level 0 BMI (Body Mass Index) 25.9 kg/m2 07/14/2014 Height 69.50 inches 5'9.50" Weight 172.00 lb Heart Rate 54 /min BP Systolic 118 mmHg BP Diastolic 80 mmHg Pain Level 0 BMI (Body Mass Index) 25.0 kg/m2 05/04/2014 Height 69.50 inches 5'9.50" Weight 176.00 lb Heart Rate 80 /min BP Systolic Sitting 124 mmHg BP Diastolic Sitting 80 mmHg Pain Level 0 BMI (Body Mass Index) 25.6 kg/m2 02/09/2014 Height 69.50 inches 5'9.50" Weight 175.75 lb Heart Rate 88 /min BP Systolic Sitting 116 mmHg BP Diastolic Sitting 74 mmHg BMI (Body Mass Index) 25.6 kg/m2 11/17/2013 Height 69.50 inches 5'9.50" Weight 173.25 lb Heart Rate 78 /min BP Systolic Sitting 126 mmHg BP Diastolic Sitting 78 mmHg BMI (Body Mass Index) 25.2 kg/m2 08/25/2013 Height 69.50 inches 5'9.50" Weight 175.25 lb Heart Rate 80 /min BP Systolic Sitting 128 mmHg BP Diastolic Sitting 86 mmHg BMI (Body Mass Index) 25.5 kg/m2 06/03/2013 Weight 173.00 lb Heart Rate 78 /min BP Systolic Sitting 130 mmHg BP Diastolic Sitting 78 mmHg 04/08/2013 Weight 177.00 lb Heart Rate 76 /min BP Systolic 110 mmHg BP Diastolic 70 mmHg Respiratory Rate 12 /min 03/17/2013 Height 66 inches 5'6" Weight 165.00 lb Heart Rate 74 /min BP Systolic Sitting 134 mmHg BP Diastolic Sitting 72 mmHg BMI (Body Mass Index) 26.6 kg/m2 03/15/2013 Heart Rate 78 /min BP Systolic Sitting 130 mmHg BP Diastolic Sitting 88 mmHg Respiratory Rate 18 /min 12/23/2012 Height 66 inches 5'6" Weight 171.00 lb Heart Rate 70 /min BP Systolic Sitting 130 mmHg BP Diastolic Sitting 74 mmHg BMI (Body Mass Index) 27.6 kg/m2 09/28/2012 Height 66 inches 5'6" Weight 177.00 lb Heart Rate 76 /min BP Systolic Sitting 130 mmHg BP Diastolic Sitting 72 mmHg BMI (Body Mass Index) 28.6 kg/m2 06/11/2012 Height 66 inches 5'6" Weight 174.00 lb Heart Rate 74 /min BP Systolic Sitting 134 mmHg BP Diastolic Sitting 79 mmHg BMI (Body Mass Index) 28.1 kg/m2 04/30/2012 Height 66 inches 5'6" Heart Rate 70 /min BP Systolic Sitting 124 mmHg BP Diastolic Sitting 68 mmHg 03/25/2012 Height 66 inches 5'6" Weight 170.50 lb Heart Rate 71 /min BP Systolic Sitting 127 mmHg BP Diastolic Sitting 73 mmHg BMI (Body Mass Index) 27.5 kg/m2 01/01/2012 Weight 172.00 lb Heart Rate 68 /min BP Systolic 132 mmHg BP Diastolic 74 mmHg 10/02/2011 Height 69 inches 5'9" Weight 171.00 lb Heart Rate 72 /min BP Systolic Sitting 122 mmHg BP Diastolic Sitting 80 mmHg BMI (Body Mass Index) 25.2 kg/m2 07/03/2011 Height 69 inches 5'9" Weight 166.00 lb Heart Rate 84 /min BP Systolic 116 mmHg BP Diastolic 70 mmHg BMI (Body Mass Index) 24.5 kg/m2 02/20/2011 Height 69 inches 5'9" Weight 171.00 lb Heart Rate 68 /min BP Systolic 120 mmHg BP Diastolic 80 mmHg BMI (Body Mass Index) 25.2 kg/m2 12/26/2010 Height 69 inches 5'9" Weight 173.00 lb Heart Rate 80 /min BP Systolic 110 mmHg BP Diastolic 70 mmHg BMI (Body Mass Index) 25.5 kg/m2 Results Test Date Test Result H/L Range Note CBC Auto Diff 04/21/2018 White Blood Count 5.3 10^3/uL 3.5-10.8 Red Blood Count 4.91 10^6/uL 4.00-5.40 Hemoglobin 16.5 g/dL 14.0-18.0 Hematocrit 47 % 42-52 Mean Corpuscular Volume 96 fL High 80-94 Mean Corpuscular Hemoglobin 34 pg High 27-31 Mean Corpuscular HGB Conc 35 g/dL 31-36 Red Cell Distribution Width 14 % 10.5-15 Platelet Count 174 10^3/uL 150-450 Mean Platelet Volume 8.9 um3 7.4-10.4 Abs Neutrophils 3.7 10^3/uL 1.5-7.7 Abs Lymphocytes 1.1 10^3/uL 1.0-4.8 Abs Monocytes 0.5 10^3/uL 0-0.8 Abs Eosinophils 0 10^3/uL 0-0.6 Abs Basophils 0 10^3/uL 0-0.2 Abs Nucleated RBC 0 10^3/uL Granulocyte % 69.4 % 38-83 Lymphocyte % 20.3 % Low 25-47 Monocyte % 9.1 % High 0-7 Eosinophil % 0.6 % 0-6 Basophil % 0.6 % 0-2 Nucleated Red Blood Cells % 0.1 Comp Metabolic Panel 04/21/2018 Sodium 137 mmol/L 135-145 Potassium 4.5 mmol/L 3.5-5.0 Chloride 104 mmol/L 101-111 Co2 Carbon Dioxide 25 mmol/L 22-32 Anion Gap 8 mmol/L 2-11 Glucose 99 mg/dL 70-100 Blood Urea Nitrogen 16 mg/dL 6-24 Creatinine 0.91 mg/dL 0.67-1.17 BUN/Creatinine Ratio 17.6 8-20 Calcium 9.7 mg/dL 8.6-10.3 Total Protein 6.6 g/dL 6.4-8.9 Albumin 4.7 g/dL 3.2-5.2 Globulin 1.9 g/dL Low 2-4 Albumin/Globulin Ratio 2.5 1-3 Total Bilirubin 1.20 mg/dL High 0.2-1.0 Alkaline Phosphatase 63 U/L 34-104 Alt 34 U/L 7-52 Ast 35 U/L 13-39 Egfr Non- 84.1 >60 Egfr 108.2 >60 1 Laboratory test finding 04/21/2018 C Reactive Protein < 1.00 mg/L <8.01 Erythrocyte Sed Rate 2 mm/Hr 0-20 CBC Auto Diff 01/18/2018 White Blood Count 5.7 10^3/uL 3.5-10.8 Red Blood Count 4.77 10^6/uL 4.0-5.4 Hemoglobin 15.8 g/dL 14.0-18.0 Hematocrit 46 % 42-52 Mean Corpuscular Volume 96 fL High 80-94 Mean Corpuscular Hemoglobin 33 pg High 27-31 Mean Corpuscular HGB Conc 35 g/dL 31-36 Red Cell Distribution Width 13 % 10.5-15 Platelet Count 171 10^3/uL 150-450 Mean Platelet Volume 9 um3 7.4-10.4 Abs Neutrophils 4.0 10^3/uL 1.5-7.7 Abs Lymphocytes 1.1 10^3/uL 1.0-4.8 Abs Monocytes 0.6 10^3/uL 0-0.8 Abs Eosinophils 0 10^3/uL 0-0.6 Abs Basophils 0 10^3/uL 0-0.2 Abs Nucleated RBC 0 10^3/uL Granulocyte % 69.2 % 38-83 Lymphocyte % 19.9 % Low 25-47 Monocyte % 9.7 % High 0-7 Eosinophil % 0.6 % 0-6 Basophil % 0.6 % 0-2 Nucleated Red Blood Cells % 0.1 Comp Metabolic Panel 01/18/2018 Sodium 138 mmol/L 133-145 Potassium 4.5 mmol/L 3.5-5.0 Chloride 104 mmol/L 101-111 Co2 Carbon Dioxide 29 mmol/L 22-32 Anion Gap 5 mmol/L 2-11 Glucose 88 mg/dL 70-100 Blood Urea Nitrogen 14 mg/dL 6-24 Creatinine 0.94 mg/dL 0.67-1.17 BUN/Creatinine Ratio 14.9 8-20 Calcium 9.6 mg/dL 8.6-10.3 Total Protein 6.3 g/dL Low 6.4-8.9 Albumin 4.5 g/dL 3.2-5.2 Globulin 1.8 g/dL Low 2-4 Albumin/Globulin Ratio 2.5 1-3 Total Bilirubin 0.90 mg/dL 0.2-1.0 Alkaline Phosphatase 68 U/L 34-104 Alt 23 U/L 7-52 Ast 23 U/L 13-39 Egfr Non- 81.1 >60 Egfr 104.2 >60 2 Laboratory test finding 01/18/2018 Erythrocyte Sed Rate 3 mm/Hr 0-20 C Reactive Protein < 1.00 mg/L < 5.00 3 CBC Auto Diff 10/13/2017 White Blood Count 5.5 10^3/uL 3.5-10.8 Red Blood Count 4.73 10^6/uL 4.0-5.4 Hemoglobin 15.5 g/dL 14.0-18.0 Hematocrit 46 % 42-52 Mean Corpuscular Volume 97 fL High 80-94 Mean Corpuscular Hemoglobin 33 pg High 27-31 Mean Corpuscular HGB Conc 34 g/dL 31-36 Red Cell Distribution Width 13 % 10.5-15 Platelet Count 181 10^3/uL 150-450 Mean Platelet Volume 9 um3 7.4-10.4 Abs Neutrophils 3.5 10^3/uL 1.5-7.7 Abs Lymphocytes 1.3 10^3/uL 1.0-4.8 Abs Monocytes 0.6 10^3/uL 0-0.8 Abs Eosinophils 0.1 10^3/uL 0-0.6 Abs Basophils 0.1 10^3/uL 0-0.2 Abs Nucleated RBC 0 10^3/uL Granulocyte % 62.9 % 38-83 Lymphocyte % 24.0 % Low 25-47 Monocyte % 11.1 % High 1-9 Eosinophil % 1.1 % 0-6 Basophil % 0.9 % 0-2 Nucleated Red Blood Cells % 0 Comp Metabolic Panel 10/13/2017 Sodium 136 mmol/L 133-145 Potassium 4.2 mmol/L 3.5-5.0 Chloride 103 mmol/L 101-111 Co2 Carbon Dioxide 29 mmol/L 22-32 Anion Gap 4 mmol/L 2-11 Glucose 88 mg/dL 70-100 Blood Urea Nitrogen 18 mg/dL 6-24 Creatinine 0.95 mg/dL 0.67-1.17 BUN/Creatinine Ratio 18.9 8-20 Calcium 8.9 mg/dL 8.6-10.3 Total Protein 6.1 g/dL Low 6.4-8.9 Albumin 4.4 g/dL 3.2-5.2 Globulin 1.7 g/dL Low 2-4 Albumin/Globulin Ratio 2.6 1-3 Total Bilirubin 1.10 mg/dL High 0.2-1.0 Alkaline Phosphatase 63 U/L 34-104 Alt 37 U/L 7-52 Ast 35 U/L 13-39 Egfr Non- 80.1 >60 Egfr 103.0 >60 4 Laboratory test finding 10/13/2017 C Reactive Protein < 1.00 mg/L < 5.00 5 Erythrocyte Sed Rate 3 mm/Hr 0-20 Laboratory test 08/27/2017 Surgical Pathology SEE RESULT BELOW 6, 7 finding CBC W/Auto Diff 06/29/2017 White Blood Count 6.6 10^3/uL 3.5-10.8 Red Blood Count 4.69 10^6/uL 4.0-5.4 Hemoglobin 15.7 g/dL 14.0-18.0 Hematocrit 46 % 42-52 Mean Corpuscular Volume 97 fL High 80-94 Mean Corpuscular Hemoglobin 33 pg High 27-31 Mean Corpuscular HGB Conc 34 g/dL 31-36 Red Cell Distribution Width 14 % 10.5-15 Platelet Count 170 10^3/uL 150-450 Mean Platelet Volume 9 um3 7.4-10.4 Abs Neutrophils 4.7 10^3/uL 1.5-7.7 Abs Lymphocytes 1.1 10^3/uL 1.0-4.8 Abs Monocytes 0.7 10^3/uL 0-0.8 Abs Eosinophils 0 10^3/uL 0-0.6 Abs Basophils 0.1 10^3/uL 0-0.2 Abs Nucleated RBC 0 10^3/uL Granulocyte % 70.8 % 38-83 Lymphocyte % 17.0 % Low 25-47 Monocyte % 10.6 % High 1-9 Eosinophil % 0.7 % 0-6 Basophil % 0.9 % 0-2 Nucleated Red Blood Cells % 0 CMP Panel 06/29/2017 Sodium 136 mmol/L 133-145 Potassium 4.5 mmol/L 3.5-5.0 Chloride 104 mmol/L 101-111 Co2 Carbon Dioxide 29 mmol/L 22-32 Anion Gap 3 mmol/L 2-11 Glucose 88 mg/dL 70-100 Blood Urea Nitrogen 17 mg/dL 6-24 Creatinine 0.89 mg/dL 0.67-1.17 BUN/Creatinine Ratio 19.1 8-20 Calcium 9.6 mg/dL 8.6-10.3 Total Protein 6.4 g/dL 6.4-8.9 Albumin 4.5 g/dL 3.2-5.2 Globulin 1.9 g/dL Low 2-4 Albumin/Globulin Ratio 2.4 1-3 Total Bilirubin 1.10 mg/dL High 0.2-1.0 Alkaline Phosphatase 71 U/L 34-104 Alt 26 U/L 7-52 Ast 30 U/L 13-39 Egfr Non- 86.3 >60 Egfr 111.0 >60 8 Laboratory test finding 06/29/2017 Erythrocyte Sed Rate 2 mm/Hr 0-20 9 C Reactive Protein 1.25 mg/L < 5.00 10 CBC Auto Diff 04/01/2017 White Blood Count 6.0 10^3/uL 3.5-10.8 Red Blood Count 5.03 10^6/uL 4.0-5.4 Hemoglobin 16.3 g/dL 14.0-18.0 Hematocrit 48 % 42-52 Mean Corpuscular Volume 96 fL High 80-94 Mean Corpuscular Hemoglobin 32 pg High 27-31 Mean Corpuscular HGB Conc 34 g/dL 31-36 Red Cell Distribution Width 13 % 10.5-15 Platelet Count 171 10^3/uL 150-450 Mean Platelet Volume 10 um3 7.4-10.4 Abs Neutrophils 3.9 10^3/uL 1.5-7.7 Abs Lymphocytes 1.1 10^3/uL 1.0-4.8 Abs Monocytes 0.8 10^3/uL 0-0.8 Abs Eosinophils 0.1 10^3/uL 0-0.6 Abs Basophils 0.1 10^3/uL 0-0.2 Abs Nucleated RBC 0.04 10^3/uL Granulocyte % 65.7 % 38-83 Lymphocyte % 18.3 % Low 25-47 Monocyte % 13.7 % High 1-9 Eosinophil % 1.2 % 0-6 Basophil % 1.1 % 0-2 Nucleated Red Blood Cells % 0.6 Comp Metabolic Panel 04/01/2017 Sodium 137 mmol/L 133-145 Potassium 4.2 mmol/L 3.5-5.0 Chloride 102 mmol/L 101-111 Co2 Carbon Dioxide 30 mmol/L 22-32 Anion Gap 5 mmol/L 2-11 Glucose 63 mg/dL Low 70-100 Blood Urea Nitrogen 12 mg/dL 6-24 Creatinine 0.94 mg/dL 0.67-1.17 BUN/Creatinine Ratio 12.8 8-20 Calcium 9.3 mg/dL 8.6-10.3 Total Protein 6.3 g/dL Low 6.4-8.9 Albumin 4.5 g/dL 3.2-5.2 Globulin 1.8 g/dL Low 2-4 Albumin/Globulin Ratio 2.5 1-3 Total Bilirubin 0.80 mg/dL 0.2-1.0 Alkaline Phosphatase 73 U/L 34-104 Alt 30 U/L 7-52 Ast 25 U/L 13-39 Egfr Non- 81.3 >60 Egfr 104.6 >60 11 Laboratory test finding 04/01/2017 Erythrocyte Sed Rate 4 mm/Hr 0-20 C Reactive Protein 1.08 mg/L < 5.00 12 CBC W/Auto Diff 12/29/2016 White Blood Count 8.2 10^3/uL 3.5-10.8 Red Blood Count 4.62 10^6/uL 4.0-5.4 Hemoglobin 15.1 g/dL 14.0-18.0 Hematocrit 44 % 42-52 Mean Corpuscular Volume 95 fL High 80-94 Mean Corpuscular Hemoglobin 33 pg High 27-31 Mean Corpuscular HGB Conc 34 g/dL 31-36 Red Cell Distribution Width 14 % 10.5-15 Platelet Count 178 10^3/uL 150-450 Mean Platelet Volume 10 um3 7.4-10.4 Abs Neutrophils 6.3 10^3/uL 1.5-7.7 Abs Lymphocytes 1.1 10^3/uL 1.0-4.8 Abs Monocytes 0.7 10^3/uL 0-0.8 Abs Eosinophils 0 10^3/uL 0-0.6 Abs Basophils 0.1 10^3/uL 0-0.2 Abs Nucleated RBC 0 10^3/uL Granulocyte % 76.8 % 38-83 Lymphocyte % 13.5 % Low 25-47 Monocyte % 8.5 % 1-9 Eosinophil % 0.5 % 0-6 Basophil % 0.7 % 0-2 Nucleated Red Blood Cells % 0 CMP Panel 12/29/2016 Sodium 138 mmol/L 133-145 Potassium 3.8 mmol/L 3.5-5.0 Chloride 104 mmol/L 101-111 Co2 Carbon Dioxide 27 mmol/L 22-32 Anion Gap 7 mmol/L 2-11 Glucose 99 mg/dL 70-100 Blood Urea Nitrogen 12 mg/dL 6-24 Creatinine 0.88 mg/dL 0.67-1.17 BUN/Creatinine Ratio 13.6 8-20 Calcium 9.5 mg/dL 8.6-10.3 Total Protein 6.5 g/dL 6.4-8.9 Albumin 4.5 g/dL 3.2-5.2 Globulin 2.0 g/dL 2-4 Albumin/Globulin Ratio 2.3 1-3 Total Bilirubin 0.80 mg/dL 0.2-1.0 Alkaline Phosphatase 69 U/L 34-104 Alt 26 U/L 7-52 Ast 26 U/L 13-39 Egfr Non- 87.8 >60 Egfr 112.9 >60 13 Laboratory test finding 12/29/2016 C Reactive Protein < 1.00 mg/L < 5.00 14 Erythrocyte Sed Rate 2 mm/Hr 0-20 15 CBC W/Auto Diff 09/29/2016 White Blood Count 6.0 10^3/uL 3.5-10.8 Red Blood Count 5.25 10^6/uL 4.0-5.4 Hemoglobin 17.2 g/dL 14.0-18.0 Hematocrit 50 % 42-52 Mean Corpuscular Volume 96 fL High 80-94 Mean Corpuscular Hemoglobin 33 pg High 27-31 Mean Corpuscular HGB Conc 34 g/dL 31-36 Red Cell Distribution Width 13 % 10.5-15 Platelet Count 180 10^3/uL 150-450 Mean Platelet Volume 10 um3 7.4-10.4 Abs Neutrophils 3.9 10^3/uL 1.5-7.7 Abs Lymphocytes 1.2 10^3/uL 1.0-4.8 Abs Monocytes 0.9 10^3/uL High 0-0.8 Abs Eosinophils 0 10^3/uL 0-0.6 Abs Basophils 0.1 10^3/uL 0-0.2 Abs Nucleated RBC 0 10^3/uL Granulocyte % 64.0 % 38-83 Lymphocyte % 19.0 % Low 25-47 Monocyte % 15.2 % High 1-9 Eosinophil % 0.7 % 0-6 Basophil % 1.1 % 0-2 Nucleated Red Blood Cells % 0.1 Laboratory test finding 09/29/2016 Erythrocyte Sed Rate 1 mm/Hr 0-20 Comp Metabolic Panel 09/29/2016 Sodium 136 mmol/L 133-145 Potassium 4.2 mmol/L 3.5-5.0 Chloride 101 mmol/L 101-111 Co2 Carbon Dioxide 29 mmol/L 22-32 Anion Gap 6 mmol/L 2-11 Glucose 75 mg/dL 70-100 Blood Urea Nitrogen 14 mg/dL 6-24 Creatinine 0.92 mg/dL 0.67-1.17 BUN/Creatinine Ratio 15.2 8-20 Calcium 9.0 mg/dL 8.6-10.3 Total Protein 6.5 g/dL 6.4-8.9 Albumin 4.5 g/dL 3.2-5.2 Globulin 2.0 g/dL 2-4 Albumin/Globulin Ratio 2.3 1-3 Total Bilirubin 0.60 mg/dL 0.2-1.0 Alkaline Phosphatase 79 U/L 34-104 Alt 22 U/L 7-52 Ast 19 U/L 13-39 Egfr Non- 83.4 >60 Egfr 107.2 >60 16 Laboratory test finding 09/29/2016 C Reactive Protein 1.08 mg/L < 5.00 17 Comp Metabolic Panel 06/30/2016 Sodium 138 mmol/L 133-145 Potassium 4.4 mmol/L 3.5-5.0 Chloride 101 mmol/L 101-111 Co2 Carbon Dioxide 29 mmol/L 22-32 Anion Gap 8 mmol/L 2-11 Glucose 84 mg/dL 70-100 Blood Urea Nitrogen 13 mg/dL 6-24 Creatinine 0.88 mg/dL 0.67-1.17 BUN/Creatinine Ratio 14.8 8-20 Calcium 9.3 mg/dL 8.6-10.3 Total Protein 6.3 g/dL Low 6.4-8.9 Albumin 4.3 g/dL 3.2-5.2 Globulin 2.0 g/dL 2-4 Albumin/Globulin Ratio 2.2 1-3 Total Bilirubin 0.80 mg/dL 0.2-1.0 Alkaline Phosphatase 69 U/L 34-104 Alt 21 U/L 7-52 Ast 23 U/L 13-39 Egfr Non- 87.8 >60 Egfr 112.9 >60 18 Laboratory test finding 06/30/2016 C Reactive Protein < 1.00 mg/L < 5.00 19 CBC Auto Diff 06/30/2016 White Blood Count 7.4 10^3/uL 3.5-10.8 Red Blood Count 4.73 10^6/uL 4.0-5.4 Hemoglobin 15.5 g/dL 14.0-18.0 Hematocrit 45 % 42-52 Mean Corpuscular Volume 96 fL High 80-94 Mean Corpuscular Hemoglobin 33 pg High 27-31 Mean Corpuscular HGB Conc 34 g/dL 31-36 Red Cell Distribution Width 13 % 10.5-15 Platelet Count 173 10^3/uL 150-450 Mean Platelet Volume 10 um3 7.4-10.4 Abs Neutrophils 5.3 10^3/uL 1.5-7.7 Abs Lymphocytes 1.1 10^3/uL 1.0-4.8 Abs Monocytes 0.8 10^3/uL 0-0.8 Abs Eosinophils 0.1 10^3/uL 0-0.6 Abs Basophils 0.1 10^3/uL 0-0.2 Abs Nucleated RBC 0 10^3/uL Granulocyte % 72.7 % 38-83 Lymphocyte % 14.8 % Low 25-47 Monocyte % 10.3 % High 1-9 Eosinophil % 0.9 % 0-6 Basophil % 1.3 % 0-2 Nucleated Red Blood Cells % 0 Laboratory test finding 06/30/2016 Erythrocyte Sed Rate 1 mm/Hr 0-20 20 Comp Metabolic Panel 03/28/2016 Sodium 139 mmol/L 133-145 Potassium 4.2 mmol/L 3.5-5.0 Chloride 105 mmol/L 101-111 Co2 Carbon Dioxide 27 mmol/L 22-32 Anion Gap 7 mmol/L 2-11 Glucose 97 mg/dL 70-100 Blood Urea Nitrogen 14 mg/dL 6-24 Creatinine 0.92 mg/dL 0.67-1.17 BUN/Creatinine Ratio 15.2 8-20 Calcium 9.3 mg/dL 8.6-10.3 Total Protein 6.2 g/dL Low 6.4-8.9 Albumin 4.7 g/dL 3.2-5.2 Globulin 1.5 g/dL Low 2-4 Albumin/Globulin Ratio 3.1 High 1-3 Total Bilirubin 0.80 mg/dL 0.2-1.0 Alkaline Phosphatase 64 U/L 34-104 Alt 29 U/L 7-52 Ast 25 U/L 13-39 Egfr Non- 83.6 >60 Egfr 107.6 >60 21 Laboratory test finding 03/28/2016 Erythrocyte Sed Rate 2 mm/Hr 0-20 22 CBC Auto Diff 03/28/2016 White Blood Count 6.7 10^3/uL 3.5-10.8 Red Blood Count 4.67 10^6/uL 4.0-5.4 Hemoglobin 15.3 g/dL 14.0-18.0 Hematocrit 45 % 42-52 Mean Corpuscular Volume 96 fL High 80-94 Mean Corpuscular Hemoglobin 33 pg High 27-31 Mean Corpuscular HGB Conc 34 g/dL 31-36 Red Cell Distribution Width 13 % 10.5-15 Platelet Count 174 10^3/uL 150-450 Mean Platelet Volume 9 um3 7.4-10.4 Abs Neutrophils 4.8 10^3/uL 1.5-7.7 Abs Lymphocytes 1.1 10^3/uL 1.0-4.8 Abs Monocytes 0.6 10^3/uL 0-0.8 Abs Eosinophils 0.1 10^3/uL 0-0.6 Abs Basophils 0.1 10^3/uL 0-0.2 Abs Nucleated RBC 0 10^3/uL Granulocyte % 71.8 % 38-83 Lymphocyte % 16.9 % Low 25-47 Monocyte % 9.2 % High 1-9 Eosinophil % 1.0 % 0-6 Basophil % 1.1 % 0-2 Nucleated Red Blood Cells % 0 Laboratory test finding 03/28/2016 C Reactive Protein < 1.00 mg/L < 5.00 23 Laboratory test finding 02/27/2016 Erythrocyte Sed Rate 4 mm/Hr 0-20 CBC Auto Diff 02/27/2016 White Blood Count 5.1 10^3/uL 3.5-10.8 Red Blood Count 5.04 10^6/uL 4.0-5.4 Hemoglobin 16.2 g/dL 14.0-18.0 Hematocrit 49 % 42-52 Mean Corpuscular Volume 97 fL High 80-94 Mean Corpuscular Hemoglobin 32 pg High 27-31 Mean Corpuscular HGB Conc 33 g/dL 31-36 Red Cell Distribution Width 14 % 10.5-15 Platelet Count 173 10^3/uL 150-450 Mean Platelet Volume 9 um3 7.4-10.4 Abs Neutrophils 3.6 10^3/uL 1.5-7.7 Abs Lymphocytes 0.9 10^3/uL Low 1.0-4.8 Abs Monocytes 0.6 10^3/uL 0-0.8 Abs Eosinophils 0.1 10^3/uL 0-0.6 Abs Basophils 0 10^3/uL 0-0.2 Abs Nucleated RBC 0 10^3/uL Granulocyte % 69.6 % 38-83 Lymphocyte % 16.7 % Low 25-47 Monocyte % 11.7 % High 1-9 Eosinophil % 1.2 % 0-6 Basophil % 0.8 % 0-2 Nucleated Red Blood Cells % 0 Laboratory test finding 02/27/2016 C Reactive Protein < 1.00 mg/L < 5.00 24 Comp Metabolic Panel 02/27/2016 Sodium 138 mmol/L 133-145 Potassium 3.9 mmol/L 3.5-5.0 Chloride 105 mmol/L 101-111 Co2 Carbon Dioxide 26 mmol/L 22-32 Anion Gap 7 mmol/L 2-11 Glucose 97 mg/dL 70-100 Blood Urea Nitrogen 16 mg/dL 6-24 Creatinine 0.89 mg/dL 0.67-1.17 BUN/Creatinine Ratio 18.0 8-20 Calcium 9.2 mg/dL 8.6-10.3 Total Protein 6.3 g/dL Low 6.4-8.9 Albumin 4.6 g/dL 3.2-5.2 Globulin 1.7 g/dL Low 2-4 Albumin/Globulin Ratio 2.7 1-3 Total Bilirubin 1.00 mg/dL 0.2-1.0 Alkaline Phosphatase 61 U/L 34-104 Alt 34 U/L 7-52 Ast 33 U/L 13-39 Egfr Non- 86.9 >60 Egfr 111.8 >60 25 Comp Metabolic Panel 02/13/2016 Sodium 137 mmol/L 133-145 Chloride 104 mmol/L 101-111 Co2 Carbon Dioxide 27 mmol/L 22-32 Glucose 75 mg/dL 70-100 Blood Urea Nitrogen 19 mg/dL 6-24 Creatinine 0.88 mg/dL 0.67-1.17 BUN/Creatinine Ratio 21.6 High 8-20 Calcium 9.3 mg/dL 8.6-10.3 Total Protein 6.8 g/dL 6.4-8.9 Albumin 4.6 g/dL 3.2-5.2 Globulin 2.2 g/dL 2-4 Albumin/Globulin Ratio 2.1 1-3 Total Bilirubin 0.90 mg/dL 0.2-1.0 Alkaline Phosphatase 64 U/L 34-104 Alt 35 U/L 7-52 Egfr Non- 88.0 >60 Egfr 113.2 >60 26 Potassium 4.4 mmol/L 3.5-5.0 Anion Gap 6 mmol/L 2-11 Ast 40 U/L High 13-39 Laboratory test finding 02/13/2016 C Reactive Protein < 1.00 mg/L < 5.00 27 CBC Auto Diff 02/13/2016 White Blood Count 5.1 10^3/uL 3.5-10.8 Red Blood Count 5.02 10^6/uL 4.0-5.4 Hemoglobin 16.4 g/dL 14.0-18.0 Hematocrit 48 % 42-52 Mean Corpuscular Volume 96 fL High 80-94 Mean Corpuscular Hemoglobin 33 pg High 27-31 Mean Corpuscular HGB Conc 34 g/dL 31-36 Red Cell Distribution Width 13 % 10.5-15 Platelet Count 174 10^3/uL 150-450 Mean Platelet Volume 9 um3 7.4-10.4 Abs Neutrophils 3.4 10^3/uL 1.5-7.7 Abs Lymphocytes 1.0 10^3/uL 1.0-4.8 Abs Monocytes 0.6 10^3/uL 0-0.8 Abs Eosinophils 0.1 10^3/uL 0-0.6 Abs Basophils 0.1 10^3/uL 0-0.2 Abs Nucleated RBC 0 10^3/uL Granulocyte % 65.9 % 38-83 Lymphocyte % 19.7 % Low 25-47 Monocyte % 11.2 % High 1-9 Eosinophil % 1.9 % 0-6 Basophil % 1.3 % 0-2 Nucleated Red Blood Cells % 0 Laboratory test finding 02/13/2016 Erythrocyte Sed Rate 3 mm/Hr 0-20 Comp Metabolic Panel 12/26/2015 Sodium 138 mmol/L 133-145 Potassium 3.9 mmol/L 3.5-5.0 Chloride 104 mmol/L 101-111 Co2 Carbon Dioxide 31 mmol/L 22-32 Anion Gap 3 mmol/L 2-11 Glucose 66 mg/dL Low 70-100 Blood Urea Nitrogen 16 mg/dL 6-24 Creatinine 0.89 mg/dL 0.67-1.17 BUN/Creatinine Ratio 18.0 8-20 Calcium 9.4 mg/dL 8.6-10.3 Total Protein 6.4 g/dL 6.4-8.9 Albumin 4.6 g/dL 3.2-5.2 Globulin 1.8 g/dL Low 2-4 Albumin/Globulin Ratio 2.6 1-3 Total Bilirubin 1.00 mg/dL 0.2-1.0 Alkaline Phosphatase 69 U/L 34-104 Alt 32 U/L 7-52 Ast 25 U/L 13-39 Egfr Non- 86.9 >60 Egfr 111.8 >60 28 Laboratory test finding 12/26/2015 C Reactive Protein < 1.00 mg/L < 5.00 29 CBC Auto Diff 12/26/2015 White Blood Count 6.5 10^3/uL 3.5-10.8 Red Blood Count 5.01 10^6/uL 4.0-5.4 Hemoglobin 16.2 g/dL 14.0-18.0 Hematocrit 48 % 42-52 Mean Corpuscular Volume 96 fL High 80-94 Mean Corpuscular Hemoglobin 32 pg High 27-31 Mean Corpuscular HGB Conc 34 g/dL 31-36 Red Cell Distribution Width 13 % 10.5-15 Platelet Count 175 10^3/uL 150-450 Mean Platelet Volume 9 um3 7.4-10.4 Abs Neutrophils 4.1 10^3/uL 1.5-7.7 Abs Lymphocytes 1.3 10^3/uL 1.0-4.8 Abs Monocytes 1.0 10^3/uL High 0-0.8 Abs Eosinophils 0.1 10^3/uL 0-0.6 Abs Basophils 0.1 10^3/uL 0-0.2 Abs Nucleated RBC 0 10^3/uL Granulocyte % 62.7 % 38-83 Lymphocyte % 19.4 % Low 25-47 Monocyte % 15.0 % High 1-9 Eosinophil % 1.7 % 0-6 Basophil % 1.2 % 0-2 Nucleated Red Blood Cells % 0 Laboratory test finding 12/26/2015 Erythrocyte Sed Rate 1 mm/Hr 0-20 30 CBC Auto Diff 09/24/2015 White Blood Count 5.5 10^3/uL 4.8-10.8 Red Blood Count 4.77 10^6/uL 4.0-5.4 Hemoglobin 15.4 g/dL 14.0-18.0 Hematocrit 46 % 42-52 Mean Corpuscular Volume 97 fL High 80-94 Mean Corpuscular Hemoglobin 32 pg High 27-31 Mean Corpuscular HGB Conc 33 g/dL 31-36 Red Cell Distribution Width 14 % 10.5-15 Platelet Count 178 10^3/uL 150-450 Mean Platelet Volume 9 um3 7.4-10.4 Abs Neutrophils 3.8 10^3/uL 1.5-7.7 Abs Lymphocytes 0.9 10^3/uL Low 1.0-4.8 Abs Monocytes 0.6 10^3/uL 0-0.8 Abs Eosinophils 0.1 10^3/uL 0-0.6 Abs Basophils 0.1 10^3/uL 0-0.2 Abs Nucleated RBC 0 10^3/uL Granulocyte % 70.3 % 38-83 Lymphocyte % 17.2 % Low 25-47 Monocyte % 10.4 % High 1-9 Eosinophil % 1.1 % 0-6 Basophil % 1.0 % 0-2 Nucleated Red Blood Cells % 0 Laboratory test finding 09/24/2015 C Reactive Protein < 1.00 mg/L < 5.00 31 Erythrocyte Sed Rate 3 mm/Hr 0-20 32 Comp Metabolic Panel 09/24/2015 Sodium 137 mmol/L 133-145 Potassium 3.9 mmol/L 3.5-5.0 Chloride 102 mmol/L 101-111 Co2 Carbon Dioxide 30 mmol/L 22-32 Anion Gap 5 mmol/L 2-11 Glucose 91 mg/dL 70-100 Blood Urea Nitrogen 13 mg/dL 6-24 Creatinine 0.85 mg/dL 0.67-1.17 BUN/Creatinine Ratio 15.3 8-20 Calcium 9.3 mg/dL 8.6-10.3 Total Protein 6.1 g/dL Low 6.4-8.9 Albumin 4.4 g/dL 3.2-5.2 Globulin 1.7 g/dL Low 2-4 Albumin/Globulin Ratio 2.6 1-3 Total Bilirubin 0.90 mg/dL 0.2-1.0 Alkaline Phosphatase 59 U/L 34-104 Alt 26 U/L 7-52 Ast 25 U/L 13-39 Egfr Non- 91.6 >60 Egfr 117.9 >60 33 CBC Auto Diff 05/24/2015 White Blood Count 8.2 10^3/uL 4.8-10.8 Red Blood Count 4.90 10^6/uL 4.0-5.4 Hemoglobin 16.2 g/dL 14.0-18.0 Hematocrit 47 % 42-52 Mean Corpuscular Volume 96 fL High 80-94 Mean Corpuscular Hemoglobin 33 pg High 27-31 Mean Corpuscular HGB Conc 34 g/dL 31-36 Red Cell Distribution Width 13 % 10.5-15 Platelet Count 240 10^3/uL 150-450 Mean Platelet Volume 8 um3 7.4-10.4 Abs Neutrophils 5.5 10^3/uL 1.5-7.7 Abs Lymphocytes 1.4 10^3/uL 1.0-4.8 Abs Monocytes 0.6 10^3/uL 0-0.8 Abs Eosinophils 0.6 10^3/uL 0-0.6 Abs Basophils 0 10^3/uL 0-0.2 Abs Nucleated RBC 0.01 10^3/uL Granulocyte % 67.6 % 38-83 Lymphocyte % 16.6 % Low 25-47 Monocyte % 7.9 % 1-9 Eosinophil % 7.8 % High 0-6 Basophil % 0.1 % 0-2 Nucleated Red Blood Cells % 0.1 Comp Metabolic Panel 05/24/2015 Sodium 138 mmol/L 133-145 Potassium 4.2 mmol/L 3.5-5.0 Chloride 103 mmol/L 101-111 Co2 Carbon Dioxide 29 mmol/L 22-32 Anion Gap 6 mmol/L 2-11 Glucose 78 mg/dL 70-100 Blood Urea Nitrogen 12 mg/dL 6-24 Creatinine 0.79 mg/dL 0.67-1.17 BUN/Creatinine Ratio 15.2 8-20 Calcium 9.3 mg/dL 8.6-10.3 Total Protein 6.6 g/dL 6.4-8.9 Albumin 4.7 g/dL 3.2-5.2 Globulin 1.9 g/dL Low 2-4 Albumin/Globulin Ratio 2.5 1-3 Total Bilirubin 0.70 mg/dL 0.2-1.0 Alkaline Phosphatase 80 U/L 34-104 Alt 23 U/L 7-52 Ast 19 U/L 13-39 Egfr Non- 99.7 >60 Egfr 128.2 >60 34 Laboratory test finding 05/24/2015 Erythrocyte Sed Rate 6 mm/Hr 0-20 C Reactive Protein 2.95 mg/L < 5.00 35 Comp Metabolic Panel 03/14/2015 Sodium 139 mmol/L 133-145 Potassium 4.5 mmol/L 3.5-5.0 Chloride 103 mmol/L 101-111 Co2 Carbon Dioxide 29 mmol/L 22-32 Anion Gap 7 mmol/L 2-11 Glucose 68 mg/dL Low 70-100 Blood Urea Nitrogen 13 mg/dL 6-24 Creatinine 0.86 mg/dL 0.67-1.17 BUN/Creatinine Ratio 15.1 8-20 Calcium 9.4 mg/dL 8.6-10.3 Total Protein 6.0 g/dL Low 6.4-8.9 Albumin 4.4 g/dL 3.2-5.2 Globulin 1.6 g/dL Low 2-4 Albumin/Globulin Ratio 2.8 1-3 Total Bilirubin 0.60 mg/dL 0.2-1.0 Alkaline Phosphatase 69 U/L 34-104 Alt 52 U/L 7-52 Ast 37 U/L 13-39 Egfr Non- 90.7 >60 Egfr 116.7 >60 36 Laboratory test finding 03/14/2015 C Reactive Protein 1.04 mg/L < 5.00 37 CBC Auto Diff 03/14/2015 White Blood Count 5.3 10^3/uL 4.8-10.8 Red Blood Count 4.63 10^6/uL 4.0-5.4 Hemoglobin 15.5 g/dL 14.0-18.0 Hematocrit 45 % 42-52 Mean Corpuscular Volume 97 fL High 80-94 Mean Corpuscular Hemoglobin 34 pg High 27-31 Mean Corpuscular HGB Conc 35 g/dL 31-36 Red Cell Distribution Width 14 % 10.5-15 Platelet Count 174 10^3/uL 150-450 Mean Platelet Volume 9 um3 7.4-10.4 Abs Neutrophils 3.8 10^3/uL 1.5-7.7 Abs Lymphocytes 0.7 10^3/uL Low 1.0-4.8 Abs Monocytes 0.5 10^3/uL 0-0.8 Abs Eosinophils 0.1 10^3/uL 0-0.6 Abs Basophils 0.2 10^3/uL 0-0.2 Abs Nucleated RBC 0 10^3/uL Granulocyte % 71.6 % 38-83 Lymphocyte % 13.2 % Low 25-47 Monocyte % 9.4 % High 1-9 Eosinophil % 1.8 % 0-6 Basophil % 4.0 % High 0-2 Nucleated Red Blood Cells % 0 Laboratory test finding 03/14/2015 Erythrocyte Sed Rate 4 mm/Hr 0-20 CBC Auto Diff 12/18/2014 White Blood Count 9.1 10^3/uL 4.8-10.8 Red Blood Count 4.84 10^6/uL 4.0-5.4 Hemoglobin 16.3 g/dL 14.0-18.0 Hematocrit 47 % 42-52 Mean Corpuscular Volume 96 fL High 80-94 Mean Corpuscular Hemoglobin 34 pg High 27-31 Mean Corpuscular HGB Conc 35 g/dL 31-36 Red Cell Distribution Width 13 % 10.5-15 Platelet Count 185 10^3/uL 150-450 Mean Platelet Volume 9 um3 7.4-10.4 Abs Neutrophils 6.9 10^3/uL 1.5-7.7 Abs Lymphocytes 1.3 10^3/uL 1.0-4.8 Abs Monocytes 0.8 10^3/uL 0-0.8 Abs Eosinophils 0.1 10^3/uL 0-0.6 Abs Basophils 0.1 10^3/uL 0-0.2 Abs Nucleated RBC 0 10^3/uL Granulocyte % 75.7 % 38-83 Lymphocyte % 14.0 % Low 25-47 Monocyte % 9.1 % High 1-9 Eosinophil % 0.6 % 0-6 Basophil % 0.6 % 0-2 Nucleated Red Blood Cells % 0 Comp Metabolic Panel 12/18/2014 Sodium 136 mmol/L 133-145 Potassium 4.3 mmol/L 3.5-5.0 Chloride 101 mmol/L 101-111 Co2 Carbon Dioxide 30 mmol/L 22-32 Anion Gap 5 mmol/L 2-11 Glucose 70 mg/dL 70-100 Blood Urea Nitrogen 17 mg/dL 6-24 Creatinine 0.98 mg/dL 0.67-1.17 BUN/Creatinine Ratio 17.3 8-20 Calcium 9.5 mg/dL 8.6-10.3 Total Protein 6.4 g/dL 6.4-8.9 Albumin 4.6 g/dL 3.2-5.2 Globulin 1.8 g/dL Low 2-4 Albumin/Globulin Ratio 2.6 1-3 Total Bilirubin 0.70 mg/dL 0.2-1.0 Alkaline Phosphatase 66 U/L 34-104 Alt 23 U/L 7-52 Ast 22 U/L 13-39 Egfr Non- 78.0 >60 Egfr 100.3 >60 38 Laboratory test finding 12/18/2014 Erythrocyte Sed Rate 5 mm/Hr 0-20 C Reactive Protein < 1.00 mg/L < 5.00 39 Comp Metabolic Panel 09/26/2014 Sodium 137 mmol/L 133-145 Potassium 4.2 mmol/L 3.5-5.0 40 Chloride 102 mmol/L 101-111 Co2 Carbon Dioxide 27 mmol/L 22-32 Anion Gap 8 mmol/L 2-11 Glucose 89 mg/dL 70-100 Blood Urea Nitrogen 15 mg/dL 6-24 Creatinine 0.90 mg/dL 0.67-1.17 BUN/Creatinine Ratio 16.7 8-20 Calcium 9.3 mg/dL 8.6-10.3 Total Protein 6.0 g/dL Low 6.4-8.9 Albumin 4.4 g/dL 3.2-5.2 Globulin 1.6 g/dL Low 2-4 Albumin/Globulin Ratio 2.8 1-3 Total Bilirubin 0.90 mg/dL 0.2-1.0 Alkaline Phosphatase 64 U/L 34-104 Alt 29 U/L 7-52 Ast 30 U/L 13-39 Egfr Non- 86.1 >60 Egfr 110.7 >60 41 Laboratory test finding 09/26/2014 C Reactive Protein 1.33 mg/L < 5.00 42 CBC Auto Diff 09/26/2014 White Blood Count 5.3 10^3/uL 4.8-10.8 Red Blood Count 4.60 10^6/uL 4.0-5.4 Hemoglobin 15.0 g/dL 14.0-18.0 Hematocrit 44 % 42-52 Mean Corpuscular Volume 95 fL High 80-94 Mean Corpuscular Hemoglobin 33 pg High 27-31 Mean Corpuscular HGB Conc 34 g/dL 31-36 Red Cell Distribution Width 14 % 10.5-15 Platelet Count 185 10^3/uL 150-450 Mean Platelet Volume 9 um3 7.4-10.4 Abs Neutrophils 3.5 10^3/uL 1.5-7.7 Abs Lymphocytes 1.0 10^3/uL 1.0-4.8 Abs Monocytes 0.7 10^3/uL 0-0.8 Abs Eosinophils 0.1 10^3/uL 0-0.6 Abs Basophils 0.1 10^3/uL 0-0.2 Abs Nucleated RBC 0 10^3/uL Granulocyte % 65.3 % 38-83 Lymphocyte % 19.1 % Low 25-47 Monocyte % 12.5 % High 1-9 Eosinophil % 1.9 % 0-6 Basophil % 1.2 % 0-2 Nucleated Red Blood Cells % 0 Laboratory test finding 09/26/2014 Erythrocyte Sed Rate 6 mm/Hr 0-20 Comp Metabolic Panel 09/12/2014 Sodium 136 mmol/L 133-145 Potassium 4.4 mmol/L 3.5-5.0 43 Chloride 105 mmol/L 101-111 Co2 Carbon Dioxide 26 mmol/L 22-32 Anion Gap 5 mmol/L 2-11 Glucose 87 mg/dL 70-100 Blood Urea Nitrogen 14 mg/dL 6-24 Creatinine 0.78 mg/dL 0.67-1.17 BUN/Creatinine Ratio 17.9 8-20 Calcium 9.0 mg/dL 8.6-10.3 Total Protein 6.2 g/dL Low 6.4-8.9 Albumin 4.4 g/dL 3.2-5.2 Globulin 1.8 g/dL Low 2-4 Albumin/Globulin Ratio 2.4 1-3 Total Bilirubin 1.00 mg/dL 0.2-1.0 Alkaline Phosphatase 56 U/L 34-104 Alt 35 U/L 7-52 Ast 39 U/L 13-39 Egfr Non- 101.5 >60 Egfr 130.6 >60 44 Laboratory test finding 09/12/2014 C Reactive Protein < 1.00 mg/L < 5.00 45 CBC Auto Diff 09/12/2014 White Blood Count 5.6 10^3/uL 4.8-10.8 Red Blood Count 4.84 10^6/uL 4.0-5.4 Hemoglobin 15.7 g/dL 14.0-18.0 Hematocrit 47 % 42-52 Mean Corpuscular Volume 96 fL High 80-94 Mean Corpuscular Hemoglobin 33 pg High 27-31 Mean Corpuscular HGB Conc 34 g/dL 31-36 Red Cell Distribution Width 13 % 10.5-15 Platelet Count 184 10^3/uL 150-450 Mean Platelet Volume 9 um3 7.4-10.4 Abs Neutrophils 3.9 10^3/uL 1.5-7.7 Abs Lymphocytes 1.0 10^3/uL 1.0-4.8 Abs Monocytes 0.6 10^3/uL 0-0.8 Abs Eosinophils 0.1 10^3/uL 0-0.6 Abs Basophils 0 10^3/uL 0-0.2 Abs Nucleated RBC 0 10^3/uL Granulocyte % 70.5 % 38-83 Lymphocyte % 17.3 % Low 25-47 Monocyte % 10.1 % High 1-9 Eosinophil % 1.2 % 0-6 Basophil % 0.9 % 0-2 Nucleated Red Blood Cells % 0 Laboratory test finding 09/12/2014 Erythrocyte Sed Rate 2 mm/Hr 0-20 Comp Metabolic Panel 08/29/2014 Sodium 137 mmol/L 133-145 Potassium 4.0 mmol/L 3.7-5.6 Chloride 103 mmol/L 101-111 Co2 Carbon Dioxide 29 mmol/L 22-32 Anion Gap 5 mmol/L 2-11 Glucose 73 mg/dL 70-100 Blood Urea Nitrogen 13 mg/dL 6-24 Creatinine 0.83 mg/dL 0.67-1.17 BUN/Creatinine Ratio 15.7 8-20 Calcium 9.6 mg/dL 8.6-10.3 Total Protein 6.8 g/dL 6.4-8.9 Albumin 4.6 g/dL 3.2-5.2 Globulin 2.2 g/dL 2-4 Albumin/Globulin Ratio 2.1 1-3 Total Bilirubin 0.80 mg/dL 0.2-1.0 Alkaline Phosphatase 66 U/L 34-104 Alt 43 U/L 7-52 Ast 44 U/L High 13-39 Egfr Non- 94.5 >60 Egfr 121.5 >60 46 Laboratory test finding 08/29/2014 C Reactive Protein < 1.00 mg/L < 5.00 47 CBC Auto Diff 08/29/2014 White Blood Count 5.2 10^3/uL 4.8-10.8 Red Blood Count 4.86 10^6/uL 4.0-5.4 Hemoglobin 16.3 g/dL 14.0-18.0 Hematocrit 46 % 42-52 Mean Corpuscular Volume 95 fL High 80-94 Mean Corpuscular Hemoglobin 34 pg High 27-31 Mean Corpuscular HGB Conc 35 g/dL 31-36 Red Cell Distribution Width 13 % 10.5-15 Platelet Count 198 10^3/uL 150-450 Mean Platelet Volume 8 um3 7.4-10.4 Abs Neutrophils 3.5 10^3/uL 1.5-7.7 Abs Lymphocytes 1.0 10^3/uL 1.0-4.8 Abs Monocytes 0.6 10^3/uL 0-0.8 Abs Eosinophils 0.1 10^3/uL 0-0.6 Abs Basophils 0 10^3/uL 0-0.2 Abs Nucleated RBC 0.01 10^3/uL Granulocyte % 67.1 % 38-83 Lymphocyte % 19.9 % Low 25-47 Monocyte % 11.0 % High 1-9 Eosinophil % 1.1 % 0-6 Basophil % 0.9 % 0-2 Nucleated Red Blood Cells % 0.1 Laboratory test finding 08/29/2014 Erythrocyte Sed Rate 3 mm/Hr 0-20 Comp Metabolic Panel 07/05/2014 Sodium 139 mmol/L 133-145 Potassium 4.2 mmol/L 3.7-5.6 Chloride 104 mmol/L 101-111 Co2 Carbon Dioxide 28 mmol/L 22-32 Anion Gap 7 mmol/L 2-11 Glucose 87 mg/dL 70-100 Blood Urea Nitrogen 11 mg/dL 6-24 Creatinine 0.94 mg/dL 0.67-1.17 BUN/Creatinine Ratio 11.7 8-20 Calcium 9.4 mg/dL 8.6-10.3 Total Protein 6.2 g/dL Low 6.4-8.9 Albumin 4.5 g/dL 3.2-5.2 Globulin 1.7 g/dL Low 2-4 Albumin/Globulin Ratio 2.6 1-3 Total Bilirubin 0.90 mg/dL 0.2-1.0 Alkaline Phosphatase 60 U/L 34-104 Alt 30 U/L 7-52 Ast 26 U/L 13-39 Egfr Non- 81.9 >60 Egfr 105.3 >60 48 CBC Auto Diff 07/05/2014 White Blood Count 5.1 10^3/uL 4.8-10.8 Red Blood Count 4.63 10^6/uL 4.0-5.4 Hemoglobin 15.4 g/dL 14.0-18.0 Hematocrit 44 % 42-52 Mean Corpuscular Volume 95 fL High 80-94 Mean Corpuscular Hemoglobin 33 pg High 27-31 Mean Corpuscular HGB Conc 35 g/dL 31-36 Red Cell Distribution Width 13 % 10.5-15 Platelet Count 178 10^3/uL 150-450 Mean Platelet Volume 9 um3 7.4-10.4 Abs Neutrophils 3.3 10^3/uL 1.5-7.7 Abs Lymphocytes 1.1 10^3/uL 1.0-4.8 Abs Monocytes 0.6 10^3/uL 0-0.8 Abs Eosinophils 0.1 10^3/uL 0-0.6 Abs Basophils 0.1 10^3/uL 0-0.2 Abs Nucleated RBC 0 10^3/uL Granulocyte % 65.0 % 38-83 Lymphocyte % 21.5 % Low 25-47 Monocyte % 11.1 % High 1-9 Eosinophil % 1.4 % 0-6 Basophil % 1.0 % 0-2 Nucleated Red Blood Cells % 0 Laboratory test finding 07/05/2014 Erythrocyte Sed Rate 3 mm/Hr 0-20 C Reactive Protein < 0.10 mg/L < 5.00 49 Comp Metabolic Panel 04/19/2014 Sodium 138 mmol/L 133-145 Potassium 4.1 mmol/L 3.7-5.6 Chloride 103 mmol/L 101-111 Co2 Carbon Dioxide 30 mmol/L 22-32 Anion Gap 5 mmol/L 2-11 Glucose 85 mg/dL 70-100 Blood Urea Nitrogen 15 mg/dL 6-24 Creatinine 0.82 mg/dL 0.67-1.17 BUN/Creatinine Ratio 18.3 8-20 Calcium 9.5 mg/dL 8.6-10.3 Total Protein 6.5 g/dL 6.4-8.9 Albumin 4.7 g/dL 3.2-5.2 Globulin 1.8 g/dL Low 2-4 Albumin/Globulin Ratio 2.6 1-3 Total Bilirubin 0.70 mg/dL 0.2-1.0 Alkaline Phosphatase 68 U/L 34-104 Alt 23 U/L 7-52 Ast 23 U/L 13-39 Egfr Non- 96.2 >60 Egfr 123.7 >60 50 Laboratory test finding 04/19/2014 C Reactive Protein < 1.00 mg/L < 5.00 51 CBC Auto Diff 04/19/2014 White Blood Count 6.2 10^3/uL 4.8-10.8 Red Blood Count 4.99 10^6/uL 4.0-5.4 Hemoglobin 16.6 g/dL 14.0-18.0 Hematocrit 48 % 42-52 Mean Corpuscular Volume 95 fL High 80-94 Mean Corpuscular Hemoglobin 33 pg High 27-31 Mean Corpuscular HGB Conc 35 g/dL 31-36 Red Cell Distribution Width 14 % 10.5-15 Platelet Count 182 10^3/uL 150-450 Mean Platelet Volume 9 um3 7.4-10.4 Abs Neutrophils 4.1 10^3/uL 1.5-7.7 Abs Lymphocytes 1.3 10^3/uL 1.0-4.8 Abs Monocytes 0.8 10^3/uL 0-0.8 Abs Eosinophils 0.1 10^3/uL 0-0.6 Abs Basophils 0 10^3/uL 0-0.2 Abs Nucleated RBC 0 10^3/uL Granulocyte % 65.6 % 38-83 Lymphocyte % 20.2 % Low 25-47 Monocyte % 12.4 % High 1-9 Eosinophil % 1.1 % 0-6 Basophil % 0.7 % 0-2 Nucleated Red Blood Cells % 0 Laboratory test finding 04/19/2014 Erythrocyte Sed Rate 0 mm/Hr 0-20 CBC Auto Diff 02/09/2014 White Blood Count 8.2 10^3/uL 4.8-10.8 Red Blood Count 4.73 10^6/uL 4.0-5.4 Hemoglobin 15.5 g/dL 14.0-18.0 Hematocrit 45 % 42-52 Mean Corpuscular Volume 95 fL High 80-94 Mean Corpuscular Hemoglobin 33 pg High 27-31 Mean Corpuscular HGB Conc 35 g/dL 31-36 Red Cell Distribution Width 14 % 10.5-15 Platelet Count 179 10^3/uL 150-450 Mean Platelet Volume 10 um3 7.4-10.4 Abs Neutrophils 6.3 10^3/uL 1.5-7.7 Abs Lymphocytes 1.2 10^3/uL 1.0-4.8 Abs Monocytes 0.6 10^3/uL 0-0.8 Abs Eosinophils 0 10^3/uL 0-0.6 Abs Basophils 0.1 10^3/uL 0-0.2 Abs Nucleated RBC 0 10^3/uL Granulocyte % 76.9 % 38-83 Lymphocyte % 14.5 % Low 25-47 Monocyte % 7.5 % 1-9 Eosinophil % 0.5 % 0-6 Basophil % 0.6 % 0-2 Nucleated Red Blood Cells % 0 Comp Metabolic Panel 02/09/2014 Sodium 139 mmol/L 133-145 Potassium 3.9 mmol/L 3.7-5.6 Chloride 105 mmol/L 101-111 Co2 Carbon Dioxide 27 mmol/L 22-32 Anion Gap 7 mmol/L 2-11 Glucose 76 mg/dL 70-100 Blood Urea Nitrogen 16 mg/dL 6-24 Creatinine 0.97 mg/dL 0.67-1.17 BUN/Creatinine Ratio 16.5 8-20 Calcium 9.1 mg/dL 8.6-10.3 Total Protein 6.3 g/dL Low 6.4-8.9 Albumin 4.8 g/dL 3.2-5.2 Globulin 1.5 g/dL Low 2-4 Albumin/Globulin Ratio 3.2 High 1-3 Total Bilirubin 0.70 mg/dL 0.2-1.0 Alkaline Phosphatase 63 U/L 34-104 Alt 28 U/L 7-52 Ast 28 U/L 13-39 Egfr Non- 79.2 >60 Egfr 101.9 >60 52 Laboratory test finding 02/09/2014 C Reactive Protein < 1.00 mg/L < 5.00 53 Erythrocyte Sed Rate 3 mm/Hr 0-20 Vandana Screen Negative Negative 54 Shantelle (Anti-Nuclear AB) Screen Negative Negative Cyclic Citrullinated Pept IgG <15.6 U 55 CBC Auto Diff 11/11/2013 White Blood Count 5.4 10^3/uL 4.8-10.8 Red Blood Count 4.89 10^6/uL 4.0-5.4 Hemoglobin 16.3 g/dL 14.0-18.0 Hematocrit 46 % 42-52 Mean Corpuscular Volume 95 fL High 80-94 Mean Corpuscular Hemoglobin 33 pg High 27-31 Mean Corpuscular HGB Conc 35 g/dL 31-36 Red Cell Distribution Width 14 % 10.5-15 Platelet Count 181 10^3/uL 150-450 Mean Platelet Volume 9 um3 7.4-10.4 Abs Neutrophils 3.5 10^3/uL 1.5-7.7 Abs Lymphocytes 1.1 10^3/uL 1.0-4.8 Abs Monocytes 0.7 10^3/uL 0-0.8 Abs Eosinophils 0.1 10^3/uL 0-0.6 Abs Basophils 0 10^3/uL 0-0.2 Abs Nucleated RBC 0 10^3/uL Granulocyte % 64.3 % 38-83 Lymphocyte % 20.2 % Low 25-47 Monocyte % 13.6 % High 1-9 Eosinophil % 1.2 % 0-6 Basophil % 0.7 % 0-2 Nucleated Red Blood Cells % 0.1 Comp Metabolic Panel 11/11/2013 Sodium 137 mmol/L 133-145 Potassium 4.3 mmol/L 3.5-5.0 Chloride 102 mmol/L 101-111 Co2 Carbon Dioxide 29.0 mmol/L 22-32 Anion Gap 6.0 mmol/L 2-11 Glucose 79 mg/dL 70-100 Blood Urea Nitrogen 17 mg/dL 6-24 Creatinine 0.90 mg/dL 0.50-1.40 BUN/Creatinine Ratio 18.9 8-20 Calcium 9.6 mg/dL 8.1-9.9 Total Protein 6.8 g/dL 6.2-8.1 Albumin 4.6 g/dL 3.6-5.4 Globulin 2.2 g/dL 2-4 Albumin/Globulin Ratio 2.1 1-3 Total Bilirubin 1.1 mg/dL 0.4-1.5 Alkaline Phosphatase 62 U/L 30-110 Alt 30 U/L 14-54 Ast 35 U/L 12-42 Egfr Non- 86.4 >60 Egfr 111.1 >60 56 Laboratory test finding 11/11/2013 Erythrocyte Sed Rate 0 mm/Hr 0-20 C Reactive Protein < 0.5 mg/dL Less than 0.5 Comp Metabolic Panel 08/23/2013 Sodium 137 mmol/L 133-145 Potassium 3.9 mmol/L 3.5-5.0 Chloride 103 mmol/L 101-111 Co2 Carbon Dioxide 27.0 mmol/L 22-32 Anion Gap 7.0 mmol/L 2-11 Glucose 96 mg/dL 70-100 Blood Urea Nitrogen 11 mg/dL 6-24 Creatinine 0.90 mg/dL 0.50-1.40 BUN/Creatinine Ratio 12.2 8-20 Calcium 9.4 mg/dL 8.1-9.9 Total Protein 6.0 g/dL Low 6.2-8.1 Albumin 4.5 g/dL 3.6-5.4 Globulin 1.5 g/dL Low 2-4 Albumin/Globulin Ratio 3.0 1-3 Total Bilirubin 0.9 mg/dL 0.4-1.5 Alkaline Phosphatase 63 U/L 30-110 Alt 39 U/L 14-54 Ast 40 U/L 12-42 Egfr Non- 86.4 >60 Egfr 111.1 >60 57 Laboratory test finding 08/23/2013 C Reactive Protein < 0.5 mg/dL Less than 0.5 CBC Auto Diff 08/23/2013 White Blood Count 4.8 10^3/uL 4.8-10.8 Red Blood Count 4.78 10^6/uL 4.0-5.4 Hemoglobin 16.2 g/dL 14.0-18.0 Hematocrit 46 % 42-52 Mean Corpuscular Volume 96 fL High 80-94 Mean Corpuscular Hemoglobin 34 pg High 27-31 Mean Corpuscular HGB Conc 35 g/dL 31-36 Red Cell Distribution Width 13 % 10.5-15 Platelet Count 175 10^3/uL 150-450 Mean Platelet Volume 9 um3 7.4-10.4 Abs Neutrophils 3.0 10^3/uL 1.5-7.7 Abs Lymphocytes 1.1 10^3/uL 1.0-4.8 Abs Monocytes 0.6 10^3/uL 0-0.8 Abs Eosinophils 0 10^3/uL 0-0.6 Abs Basophils 0 10^3/uL 0-0.2 Abs Nucleated RBC 0 10^3/uL Granulocyte % 62.9 % 38-83 Lymphocyte % 23.7 % Low 25-47 Monocyte % 11.7 % High 1-9 Eosinophil % 1.0 % 0-6 Basophil % 0.7 % 0-2 Nucleated Red Blood Cells % 0 Laboratory test finding 08/23/2013 Erythrocyte Sed Rate 2 mm/Hr 0-20 Comp Metabolic Panel 05/31/2013 Sodium 137 mmol/L 133-145 Potassium 4.1 mmol/L 3.5-5.0 Chloride 103 mmol/L 101-111 Co2 Carbon Dioxide 29.0 mmol/L 22-32 Anion Gap 5.0 mmol/L 2-11 Glucose 60 mg/dL Low 70-100 Blood Urea Nitrogen 11 mg/dL 6-24 Creatinine 0.90 mg/dL 0.50-1.40 BUN/Creatinine Ratio 12.2 8-20 Calcium 9.8 mg/dL 8.1-9.9 Total Protein 6.3 g/dL 6.2-8.1 Albumin 4.6 g/dL 3.6-5.4 Globulin 1.7 g/dL Low 2-4 Albumin/Globulin Ratio 2.7 1-3 Total Bilirubin 1.5 mg/dL 0.4-1.5 Alkaline Phosphatase 64 U/L 30-110 Alt 35 U/L 14-54 Ast 35 U/L 12-42 Egfr Non- 86.4 >60 Egfr 111.1 >60 58 CBC Auto Diff 05/31/2013 White Blood Count 5.4 10^3/uL 4.8-10.8 Red Blood Count 5.00 10^6/uL 4.0-5.4 Hemoglobin 17.0 g/dL 14.0-18.0 Hematocrit 48 % 42-52 Mean Corpuscular Volume 97 fL High 80-94 Mean Corpuscular Hemoglobin 34 pg High 27-31 Mean Corpuscular HGB Conc 35 g/dL 31-36 Red Cell Distribution Width 13 % 10.5-15 Platelet Count 174 10^3/uL 150-450 Mean Platelet Volume 9 um3 7.4-10.4 Abs Neutrophils 3.3 10^3/uL 1.5-7.7 Abs Lymphocytes 1.2 10^3/uL 1.0-4.8 Abs Monocytes 0.7 10^3/uL 0-0.8 Abs Eosinophils 0.1 10^3/uL 0-0.6 Abs Basophils 0 10^3/uL 0-0.2 Abs Nucleated RBC 0.01 10^3/uL Granulocyte % 62.2 % 38-83 Lymphocyte % 23.0 % Low 25-47 Monocyte % 13.1 % High 1-9 Eosinophil % 1.1 % 0-6 Basophil % 0.6 % 0-2 Nucleated Red Blood Cells % 0.1 Laboratory test finding 05/31/2013 C Reactive Protein < 0.5 mg/dL Less than 0.5 Erythrocyte Sed Rate 1 mm/Hr 0-20 Liver Function Panel 03/15/2013 Total Protein 6.3 g/dL 6.2-8.1 Albumin 4.6 g/dL 3.6-5.4 Globulin 1.7 g/dL Low 2-4 Albumin/Globulin Ratio 2.7 1-3 Total Bilirubin 0.9 mg/dL 0.4-1.5 Direct Bilirubin 0.2 mg/dL 0.1-0.5 Indirect Bilirubin 0.7 mg/dL 0.3-1.0 Alkaline Phosphatase 65 U/L 30-110 Alt 40 U/L 14-54 Ast 31 U/L 12-42 Basic Metabolic Panel 03/15/2013 Sodium 136 mmol/L 133-145 Potassium 4.6 mmol/L 3.5-5.0 Chloride 100 mmol/L Low 101-111 Co2 Carbon Dioxide 30.0 mmol/L 22-32 Anion Gap 6.0 mmol/L 2-11 Glucose 98 mg/dL 70-100 Blood Urea Nitrogen 12 mg/dL 6-24 Creatinine 0.80 mg/dL 0.50-1.40 BUN/Creatinine Ratio 15.0 8-20 Calcium 9.7 mg/dL 8.1-9.9 Egfr Non- 99.3 >60 Egfr 127.7 >60 59 CBC With Manual Diff 03/15/2013 White Blood Count 9.0 10^3/uL 4.8-10.8 Red Blood Count 4.91 10^6/uL 4.0-5.4 Hemoglobin 16.4 g/dL 14.0-18.0 Hematocrit 47 % 42-52 Mean Corpuscular Volume 95 fL High 80-94 Mean Corpuscular Hemoglobin 33 pg High 27-31 Mean Corpuscular HGB Conc 35 g/dL 31-36 Red Cell Distribution Width 13 % 10.5-15 Platelet Count 180 10^3/uL 150-450 Mean Platelet Volume 9 um3 7.4-10.4 Abs Neutrophils 6.9 10^3/uL 1.5-7.7 Abs Lymphocytes 1.2 10^3/uL 1.0-4.8 Abs Monocytes 0.8 10^3/uL 0-0.8 Abs Eosinophils 0 10^3/uL 0-0.6 Abs Basophils 0 10^3/uL 0-0.2 Abs Nucleated RBC 0 10^3/uL Neutrophil % 75 % 38-83 Lymphocytes % 14 % Low 25-47 Monocytes % 5 % 0-13 Eosinophils % 1 % 0-6 Reactive Lymph % 5 % 0-6 RBC Morphology Normal Normal Laboratory test finding 03/15/2013 C Reactive Protein < 0.5 mg/dL Less than 0.5 Erythrocyte Sed Rate 4 mm/Hr 0-20 Laboratory test finding 12/23/2012 Vitamin B12 610 pg/mL 180-914 60 TSH (Thyroid Stimulating Horm) 1.96 miu/mL 0.34-5.60 61 Free T4 0.75 ng/mL 0.61-1.24 62 Basic Metabolic Panel 12/23/2012 Sodium 138 mmol/L 133-145 Potassium 4.2 mmol/L 3.5-5.0 Chloride 101 mmol/L 101-111 Co2 Carbon Dioxide 28.0 mmol/L 22-32 Anion Gap 9.0 mmol/L 2-11 Glucose 64 mg/dL Low 70-100 Blood Urea Nitrogen 15 mg/dL 6-24 Creatinine 0.90 mg/dL 0.50-1.40 BUN/Creatinine Ratio 16.7 8-20 Calcium 9.7 mg/dL 8.1-9.9 Egfr Non- 86.7 >60 Egfr 111.5 >60 63 Liver Function Panel 12/23/2012 Total Protein 6.5 g/dL 6.2-8.1 Albumin 4.6 g/dL 3.6-5.4 Globulin 1.9 g/dL Low 2-4 Albumin/Globulin Ratio 2.4 1-3 Total Bilirubin 1.0 mg/dL 0.4-1.5 Direct Bilirubin 0.1 mg/dL 0.1-0.5 Indirect Bilirubin 0.9 mg/dL 0.3-1.0 Alkaline Phosphatase 74 U/L 30-110 Alt 37 U/L 14-54 Ast 34 U/L 12-42 Laboratory test finding 12/23/2012 C Reactive Protein < 0.5 mg/dL Less than 0.5 64 CBC With Manual Diff 12/23/2012 White Blood Count 6.1 10^3/uL 4.8-10.8 Red Blood Count 4.86 10^6/uL 4.0-5.4 Hemoglobin 15.8 g/dL 14.0-18.0 Hematocrit 47 % 42-52 Mean Corpuscular Volume 97 fL High 80-94 Mean Corpuscular Hemoglobin 33 pg High 27-31 Mean Corpuscular HGB Conc 34 g/dL 31-36 Red Cell Distribution Width 13 % 10.5-15 Platelet Count 169 10^3/uL 150-450 Mean Platelet Volume 9 um3 7.4-10.4 Abs Neutrophils 4.1 10^3/uL 1.5-7.7 Abs Lymphocytes 1.1 10^3/uL 1.0-4.8 Abs Monocytes 0.7 10^3/uL 0-0.8 Abs Eosinophils 0.1 10^3/uL 0-0.6 Abs Basophils 0 10^3/uL 0-0.2 Abs Nucleated RBC 0 10^3/uL Neutrophil % 65 % 38-83 Lymphocytes % 15 % Low 25-47 Monocytes % 11 % 0-13 Eosinophils % 3 % 0-6 Basophil % 1 % 0-2 Reactive Lymph % 5 % 0-6 Nucleated Red Blood Cells/100 0 0-0 Macrocytosis 1+ Laboratory test finding 12/23/2012 Erythrocyte Sed Rate 3 mm/Hr 0-20 Basic Metabolic Panel 09/21/2012 Sodium 140 mmol/L 133-145 Potassium 4.3 mmol/L 3.5-5.0 Chloride 105 mmol/L 101-111 Co2 Carbon Dioxide 31.0 mmol/L 22-32 Anion Gap 4.0 mmol/L 2-11 Glucose 54 mg/dL Low 70-100 Blood Urea Nitrogen 14 mg/dL 6-24 Creatinine 0.80 mg/dL 0.50-1.40 BUN/Creatinine Ratio 17.5 8-20 Calcium 9.6 mg/dL 8.1-9.9 Egfr Non- 99.3 >60 Egfr 127.7 >60 65 Liver Function Panel 09/21/2012 Total Protein 5.7 GM/DL Low 6.2-8.1 Albumin 4.2 GM/DL 3.6-5.4 Globulin 1.5 GM/DL Low 2-4 Albumin/Globulin Ratio 2.8 1-3 Total Bilirubin 1.2 mg/dL High 0.1-1.0 66 Direct Bilirubin 0.1 mg/dL 0.1-0.5 Indirect Bilirubin 1.1 mg/dL High 0.3-1.0 Alkaline Phosphatase 54 U/L 30-110 Alt 52 U/L 14-54 Ast 40 U/L 12-42 Laboratory test 09/21/2012 C Reactive Protein < 0.5 mg/dL Less Than 0.5 finding Laboratory test 09/21/2012 Erythrocyte Sed Rate 2 MM/HR 0-20 finding CBC With Manual Diff 09/21/2012 White Blood Count 4.7 10^3/uL Low 4.8- 10.8 Red Blood Count 4.63 10^6/uL 4.0-5.4 Hemoglobin 15.6 g/dL 14.0-18.0 Hematocrit 45 % 42-52 Mean Corpuscular Volume 97 fL High 80-94 Mean Corpuscular Hemoglobin 34 pg High 27-31 Mean Corpuscular HGB Conc 35 g/dL 31-36 Red Cell Distribution Width 13 % 10.5-15 Platelet Count 165 10^3/uL 150-450 Mean Platelet Volume 10 um3 7.4-10.4 Abs Neutrophils 2.9 10^3/uL 1.5-7.7 Abs Lymphocytes 1.2 10^3/uL 1.0-4.8 Abs Monocytes 0.4 10^3/uL 0-0.8 Abs Eosinophils 0.1 10^3/uL 0-0.6 Abs Basophils 0.1 10^3/uL 0-0.2 Abs Nucleated RBC 0 10^3/uL Neutrophil % 62.0 % 38-83 Band % 0 % 0-8 Lymphocytes % 27.0 % 25-47 Monocytes % 10.0 % 0-13 Eosinophils % 1.0 % 0-6 Basophil % 0 % 0-2 Reactive Lymph % 0 % 0-6 Metamyelocytes % 0 % 0-2 Myelocytes % 0 % 0-1 Promyelocytes % 0 % Blast % 0 % RBC Morphology Normal Normal Laboratory test finding 07/01/2012 C Reactive Protein < 0.5 mg/dL Less Than 0.5 Erythrocyte Sed Rate 1 MM/HR 0-20 CBC W/Manual Diff 07/01/2012 White Blood Count 4.9 CUMM 4.8-10.8 Red Cell Count 4.54 CUMM Low 4.6-6.2 Hemoglobin 15.4 g/dL 14.0-18.0 Hematocrit 44 % 42-52 Mean Corpuscular Volume 96 um3 High 80-94 Mean Corpuscular Hemoglob 34 pg High 27-31 Mean Corpuscular HGB Cone 35 g/dL 32-36 Redcell Distribution WDTH 13 % 10.5-15 Platelet Count 160 CUMM 150-450 Mean Platelet Volume 9.3 um3 7.4-10.4 Absolute Neutrophil Count 3.0 1.5-7.7 Polysegmented Neutrophil 66 % 38-83 Lymphocyte 26 % 25-47 Monocyte 6 % 0-13 Eosinophil 2 % 0-6 RBC Morphology NORMAL BMP Basic Metabolic Panel 07/01/2012 Sodium 139 mmol/L 135-145 Potassium 4.2 mmol/L 3.5-5.0 Chloride 104 mmol/L 101-111 Co2 (Carbon Dioxide) 30.0 mmol/L 22-32 Anion Gap 5.0 mmol/L 2-11 67 Glucose 86 mg/dL 70-100 BUN 20 mg/dL 6-24 Creatinine 0.8 mg/dL 0.50-1.40 One Over Creatinine 1.25 BUN/Creatinine Ratio 25.0 High 8-20 Calcium 9.3 mg/dL 8.1-9.9 eGFR Non- 99.3 > 60 eGFR 127.7 > 60 68 Hepatic Panel 07/01/2012 Total Protein 6.4 GM/DL 6.2-8.1 Albumin 4.2 GM/DL 3.6-5.4 Globulin 2.2 GM/DL 2-4 Albumin/Globulin Ratio 1.9 1-3 Bilirubin Total 0.8 mg/dL 0.4-1.5 69 Bilirubin Direct 0.1 mg/dL 0.1-0.5 Indirect Bilirubin 0.7 mg/dL 0.3-1.0 70 Alkaline Phosphatase 77 U/L 39-117 Alt (SGPT) 38 U/L 17-63 Ast (Sgot) 35 U/L 12-42 Laboratory test finding 03/23/2012 Erythrocyte Sed Rate 3 MM/HR 0-20 CBC With Manual Diff 03/23/2012 White Blood Count 5.7 CUMM 4.8-10.8 Red Cell Count 4.46 CUMM Low 4.6-6.2 Hemoglobin 14.9 g/dL 14.0-18.0 Hematocrit 42 % 42-52 Mean Corpuscular Volume 95 um3 High 80-94 Mean Corpuscular Hemoglob 33 pg High 27-31 Mean Corpuscular HGB Cone 35 g/dL 32-36 Redcell Distribution WDTH 13 % 10.5-15 Platelet Count 181 CUMM 150-450 Mean Platelet Volume 9.4 um3 7.4-10.4 Absolute Neutrophil Count 3.9 1.5-7.7 Polysegmented Neutrophil 68 % 38-83 Band Neutrophil 2 % 0-8 Lymphocyte 20 % Low 25-47 Monocyte 5 % 0-13 Eosinophil 1 % 0-6 Atypical Lymph 4 % 0-6 RBC Morphology NORMAL Laboratory test finding 03/23/2012 C Reactive Protein < 0.5 mg/dL Less Than 0.5 Liver Function Panel 03/23/2012 Total Protein 5.7 GM/DL Low 6.2-8.1 Albumin 4.3 GM/DL 3.6-5.4 Globulin 1.4 GM/DL Low 2-4 Albumin/Globulin Ratio 3.1 High 1-3 Bilirubin Total 0.9 mg/dL 0.4-1.5 71 Bilirubin Direct 0.1 mg/dL 0.1-0.5 Indirect Bilirubin 0.8 mg/dL 0.3-1.0 72 Alkaline Phosphatase 68 U/L 39-117 Alt (SGPT) 42 U/L 17-63 Ast (Sgot) 33 U/L 12-42 Basic Metabolic Panel 03/23/2012 Sodium 136 mmol/L 135-145 Potassium 4.3 mmol/L 3.5-5.0 Chloride 102 mmol/L 101-111 Co2 (Carbon Dioxide) 29.0 mmol/L 22-32 Anion Gap 5.0 mmol/L 2-11 73 Glucose 71 mg/dL 70-100 BUN 8 mg/dL 6-24 Creatinine 0.8 mg/dL 0.50-1.40 One Over Creatinine 1.25 BUN/Creatinine Ratio 10.0 8-20 Calcium 9.3 mg/dL 8.1-9.9 eGFR Non- 99.6 > 60 eGFR 128.1 > 60 74 1 Because ethnic data is not always readily available, this report includes an eGFR for both -Americans and non- Americans. The National Kidney Disease Education Program (NKDEP) does not endorse the use of the MDRD equation for patients that are not between the ages of 18 and 70, are , have extremes of body size, muscle mass, or nutritional status, or are non- or non-. According to the National Kidney Foundation, irrespective of diagnosis, the stage of the disease is based on the level of kidney function: Stage Description GFR(mL/min/1.73 m(2)) 1 Kidney damage with normal or decreased GFR 90 2 Kidney damage with mild decrease in GFR 60-89 3 Moderate decrease in GFR 30-59 4 Severe decrease in GFR 15-29 5 Kidney failure <15 (or dialysis) 2 Because ethnic data is not always readily available, this report includes an eGFR for both -Americans and non- Americans. The National Kidney Disease Education Program (NKDEP) does not endorse the use of the MDRD equation for patients that are not between the ages of 18 and 70, are , have extremes of body size, muscle mass, or nutritional status, or are non- or non-. According to the National Kidney Foundation, irrespective of diagnosis, the stage of the disease is based on the level of kidney function: Stage Description GFR(mL/min/1.73 m(2)) 1 Kidney damage with normal or decreased GFR 90 2 Kidney damage with mild decrease in GFR 60-89 3 Moderate decrease in GFR 30-59 4 Severe decrease in GFR 15-29 5 Kidney failure <15 (or dialysis) 3 Acute inflammation: >10.00 4 Because ethnic data is not always readily available, this report includes an eGFR for both -Americans and non- Americans. The National Kidney Disease Education Program (NKDEP) does not endorse the use of the MDRD equation for patients that are not between the ages of 18 and 70, are , have extremes of body size, muscle mass, or nutritional status, or are non- or non-. According to the National Kidney Foundation, irrespective of diagnosis, the stage of the disease is based on the level of kidney function: Stage Description GFR(mL/min/1.73 m(2)) 1 Kidney damage with normal or decreased GFR 90 2 Kidney damage with mild decrease in GFR 60-89 3 Moderate decrease in GFR 30-59 4 Severe decrease in GFR 15-29 5 Kidney failure <15 (or dialysis) 5 Acute inflammation: >10.00 6 [id number] SEE RESULT BELOW Name: [place] : [address]: Jeremy Reyez MD Acct: [id number] Unit: [id number] AGE: 62 Location: [facility] Re08/27/17 SEX: M Status: SLIME EMERY SPEC: [id number] KAT: 08/27/[address]: Jeremy Reyez MD REQ: [id number] RECD: 08/27/173 STATUS: SOUT _ ORDERED: LEVEL 4 COMMENTS: [id number] FINAL DIAGNOSIS Skin and subcutaneous tissue left dorsal wrist, excision: -- Epidermal inclusion cyst. PRE-OPERATIVE DIAGNOSIS Left wrist mass GROSS DESCRIPTION The specimen is received in formalin labeled, Left Dorsal Wrist Mass, and consists of a 1.5 x 1.3 x 0.6 cm schultz-pink ovoid rubbery fibrous tissue fragment with scant adherent yellow fat. The specimen is inked, serially sectioned and entirely submitted in one cassette. Signed (signature on file) Fuad Resendez MD 1259 END OF REPORT * ML=Testing performed at Main Lab DEPARTMENT OF PATHOLOGY, [address] [place] [address] Fuad Resendez M.D. Director [facility] # [id number] 8 Because ethnic data is not always readily available, this report includes an eGFR for both -Americans and non- Americans. The National Kidney Disease Education Program (NKDEP) does not endorse the use of the MDRD equation for patients that are not between the ages of 18 and 70, are , have extremes of body size, muscle mass, or nutritional status, or are non- or non-. According to the National Kidney Foundation, irrespective of diagnosis, the stage of the disease is based on the level of kidney function: Stage Description GFR(mL/min/1.73 m(2)) 1 Kidney damage with normal or decreased GFR 90 2 Kidney damage with mild decrease in GFR 60-89 3 Moderate decrease in GFR 30-59 4 Severe decrease in GFR 15-29 5 Kidney failure <15 (or dialysis) 9 STANDING ORDER ENTERED 04/01/17 EXPIRES 10/02/17 Q 8 WEEKS OR DIRECTED NON-FASTING 10 Acute inflammation: >10.00 11 Because ethnic data is not always readily available, this report includes an eGFR for both -Americans and non- Americans. The National Kidney Disease Education Program (NKDEP) does not endorse the use of the MDRD equation for patients that are not between the ages of 18 and 70, are , have extremes of body size, muscle mass, or nutritional status, or are non- or non-. According to the National Kidney Foundation, irrespective of diagnosis, the stage of the disease is based on the level of kidney function: Stage Description GFR(mL/min/1.73 m(2)) 1 Kidney damage with normal or decreased GFR 90 2 Kidney damage with mild decrease in GFR 60-89 3 Moderate decrease in GFR 30-59 4 Severe decrease in GFR 15-29 5 Kidney failure <15 (or dialysis) 12 Acute inflammation: >10.00 13 Because ethnic data is not always readily available, this report includes an eGFR for both -Americans and non- Americans. The National Kidney Disease Education Program (NKDEP) does not endorse the use of the MDRD equation for patients that are not between the ages of 18 and 70, are , have extremes of body size, muscle mass, or nutritional status, or are non- or non-. According to the National Kidney Foundation, irrespective of diagnosis, the stage of the disease is based on the level of kidney function: Stage Description GFR(mL/min/1.73 m(2)) 1 Kidney damage with normal or decreased GFR 90 2 Kidney damage with mild decrease in GFR 60-89 3 Moderate decrease in GFR 30-59 4 Severe decrease in GFR 15-29 5 Kidney failure <15 (or dialysis) 14 Acute inflammation: >10.00 15 STANDING ORDER ENTERED 09/29/16 EXPIRES 03/29/17 Q 8 WEEKS OR DIRECTED 16 Because ethnic data is not always readily available, this report includes an eGFR for both -Americans and non- Americans. The National Kidney Disease Education Program (NKDEP) does not endorse the use of the MDRD equation for patients that are not between the ages of 18 and 70, are , have extremes of body size, muscle mass, or nutritional status, or are non- or non-. According to the National Kidney Foundation, irrespective of diagnosis, the stage of the disease is based on the level of kidney function: Stage Description GFR(mL/min/1.73 m(2)) 1 Kidney damage with normal or decreased GFR 90 2 Kidney damage with mild decrease in GFR 60-89 3 Moderate decrease in GFR 30-59 4 Severe decrease in GFR 15-29 5 Kidney failure <15 (or dialysis) 17 Acute inflammation: >10.00 18 Because ethnic data is not always readily available, this report includes an eGFR for both -Americans and non- Americans. The National Kidney Disease Education Program (NKDEP) does not endorse the use of the MDRD equation for patients that are not between the ages of 18 and 70, are , have extremes of body size, muscle mass, or nutritional status, or are non- or non-. According to the National Kidney Foundation, irrespective of diagnosis, the stage of the disease is based on the level of kidney function: Stage Description GFR(mL/min/1.73 m(2)) 1 Kidney damage with normal or decreased GFR 90 2 Kidney damage with mild decrease in GFR 60-89 3 Moderate decrease in GFR 30-59 4 Severe decrease in GFR 15-29 5 Kidney failure <15 (or dialysis) 19 Acute inflammation: >10.00 20 PRN ENTERED: 03/27/16 PRN EXP: 09/27/16 21 Because ethnic data is not always readily available, this report includes an eGFR for both -Americans and non- Americans. The National Kidney Disease Education Program (NKDEP) does not endorse the use of the MDRD equation for patients that are not between the ages of 18 and 70, are , have extremes of body size, muscle mass, or nutritional status, or are non- or non-. According to the National Kidney Foundation, irrespective of diagnosis, the stage of the disease is based on the level of kidney function: Stage Description GFR(mL/min/1.73 m(2)) 1 Kidney damage with normal or decreased GFR 90 2 Kidney damage with mild decrease in GFR 60-89 3 Moderate decrease in GFR 30-59 4 Severe decrease in GFR 15-29 5 Kidney failure <15 (or dialysis) 22 PRN ENTERED: 03/27/16 PRN EXP: 09/27/16 23 Acute inflammation: >10.00 24 Acute inflammation: >10.00 25 Because ethnic data is not always readily available, this report includes an eGFR for both -Americans and non- Americans. The National Kidney Disease Education Program (NKDEP) does not endorse the use of the MDRD equation for patients that are not between the ages of 18 and 70, are , have extremes of body size, muscle mass, or nutritional status, or are non- or non-. According to the National Kidney Foundation, irrespective of diagnosis, the stage of the disease is based on the level of kidney function: Stage Description GFR(mL/min/1.73 m(2)) 1 Kidney damage with normal or decreased GFR 90 2 Kidney damage with mild decrease in GFR 60-89 3 Moderate decrease in GFR 30-59 4 Severe decrease in GFR 15-29 5 Kidney failure <15 (or dialysis) 26 Because ethnic data is not always readily available, this report includes an eGFR for both -Americans and non- Americans. The National Kidney Disease Education Program (NKDEP) does not endorse the use of the MDRD equation for patients that are not between the ages of 18 and 70, are , have extremes of body size, muscle mass, or nutritional status, or are non- or non-. According to the National Kidney Foundation, irrespective of diagnosis, the stage of the disease is based on the level of kidney function: Stage Description GFR(mL/min/1.73 m(2)) 1 Kidney damage with normal or decreased GFR 90 2 Kidney damage with mild decrease in GFR 60-89 3 Moderate decrease in GFR 30-59 4 Severe decrease in GFR 15-29 5 Kidney failure <15 (or dialysis) 27 Acute inflammation: >10.00 28 Because ethnic data is not always readily available, this report includes an eGFR for both -Americans and non- Americans. The National Kidney Disease Education Program (NKDEP) does not endorse the use of the MDRD equation for patients that are not between the ages of 18 and 70, are , have extremes of body size, muscle mass, or nutritional status, or are non- or non-. According to the National Kidney Foundation, irrespective of diagnosis, the stage of the disease is based on the level of kidney function: Stage Description GFR(mL/min/1.73 m(2)) 1 Kidney damage with normal or decreased GFR 90 2 Kidney damage with mild decrease in GFR 60-89 3 Moderate decrease in GFR 30-59 4 Severe decrease in GFR 15-29 5 Kidney failure <15 (or dialysis) 29 Acute inflammation: >10.00 30 PRN EXP: 03/19/16 31 Acute inflammation: >10.00 32 standing orders q 8 weeks 33 Because ethnic data is not always readily available, this report includes an eGFR for both -Americans and non- Americans. The National Kidney Disease Education Program (NKDEP) does not endorse the use of the MDRD equation for patients that are not between the ages of 18 and 70, are , have extremes of body size, muscle mass, or nutritional status, or are non- or non-. According to the National Kidney Foundation, irrespective of diagnosis, the stage of the disease is based on the level of kidney function: Stage Description GFR(mL/min/1.73 m(2)) 1 Kidney damage with normal or decreased GFR 90 2 Kidney damage with mild decrease in GFR 60-89 3 Moderate decrease in GFR 30-59 4 Severe decrease in GFR 15-29 5 Kidney failure <15 (or dialysis) 34 Because ethnic data is not always readily available, this report includes an eGFR for both -Americans and non- Americans. The National Kidney Disease Education Program (NKDEP) does not endorse the use of the MDRD equation for patients that are not between the ages of 18 and 70, are , have extremes of body size, muscle mass, or nutritional status, or are non- or non-. According to the National Kidney Foundation, irrespective of diagnosis, the stage of the disease is based on the level of kidney function: Stage Description GFR(mL/min/1.73 m(2)) 1 Kidney damage with normal or decreased GFR 90 2 Kidney damage with mild decrease in GFR 60-89 3 Moderate decrease in GFR 30-59 4 Severe decrease in GFR 15-29 5 Kidney failure <15 (or dialysis) 35 Acute inflammation: >10.00 36 Because ethnic data is not always readily available, this report includes an eGFR for both -Americans and non- Americans. The National Kidney Disease Education Program (NKDEP) does not endorse the use of the MDRD equation for patients that are not between the ages of 18 and 70, are , have extremes of body size, muscle mass, or nutritional status, or are non- or non-. According to the National Kidney Foundation, irrespective of diagnosis, the stage of the disease is based on the level of kidney function: Stage Description GFR(mL/min/1.73 m(2)) 1 Kidney damage with normal or decreased GFR 90 2 Kidney damage with mild decrease in GFR 60-89 3 Moderate decrease in GFR 30-59 4 Severe decrease in GFR 15-29 5 Kidney failure <15 (or dialysis) 37 Acute inflammation: >10.00 38 Because ethnic data is not always readily available, this report includes an eGFR for both -Americans and non- Americans. The National Kidney Disease Education Program (NKDEP) does not endorse the use of the MDRD equation for patients that are not between the ages of 18 and 70, are , have extremes of body size, muscle mass, or nutritional status, or are non- or non-. According to the National Kidney Foundation, irrespective of diagnosis, the stage of the disease is based on the level of kidney function: Stage Description GFR(mL/min/1.73 m(2)) 1 Kidney damage with normal or decreased GFR 90 2 Kidney damage with mild decrease in GFR 60-89 3 Moderate decrease in GFR 30-59 4 Severe decrease in GFR 15-29 5 Kidney failure <15 (or dialysis) 39 Acute inflammation: >10.00 40 Potassium reference range changed effective 09/03/14 41 Because ethnic data is not always readily available, this report includes an eGFR for both -Americans and non- Americans. The National Kidney Disease Education Program (NKDEP) does not endorse the use of the MDRD equation for patients that are not between the ages of 18 and 70, are , have extremes of body size, muscle mass, or nutritional status, or are non- or non-. According to the National Kidney Foundation, irrespective of diagnosis, the stage of the disease is based on the level of kidney function: Stage Description GFR(mL/min/1.73 m(2)) 1 Kidney damage with normal or decreased GFR 90 2 Kidney damage with mild decrease in GFR 60-89 3 Moderate decrease in GFR 30-59 4 Severe decrease in GFR 15-29 5 Kidney failure <15 (or dialysis) 42 Acute inflammation: >10.00 43 Potassium reference range changed effective 09/03/14 44 Because ethnic data is not always readily available, this report includes an eGFR for both -Americans and non- Americans. The National Kidney Disease Education Program (NKDEP) does not endorse the use of the MDRD equation for patients that are not between the ages of 18 and 70, are , have extremes of body size, muscle mass, or nutritional status, or are non- or non-. According to the National Kidney Foundation, irrespective of diagnosis, the stage of the disease is based on the level of kidney function: Stage Description GFR(mL/min/1.73 m(2)) 1 Kidney damage with normal or decreased GFR 90 2 Kidney damage with mild decrease in GFR 60-89 3 Moderate decrease in GFR 30-59 4 Severe decrease in GFR 15-29 5 Kidney failure <15 (or dialysis) 45 Acute inflammation: >10.00 46 Because ethnic data is not always readily available, this report includes an eGFR for both -Americans and non- Americans. The National Kidney Disease Education Program (NKDEP) does not endorse the use of the MDRD equation for patients that are not between the ages of 18 and 70, are , have extremes of body size, muscle mass, or nutritional status, or are non- or non-. According to the National Kidney Foundation, irrespective of diagnosis, the stage of the disease is based on the level of kidney function: Stage Description GFR(mL/min/1.73 m(2)) 1 Kidney damage with normal or decreased GFR 90 2 Kidney damage with mild decrease in GFR 60-89 3 Moderate decrease in GFR 30-59 4 Severe decrease in GFR 15-29 5 Kidney failure <15 (or dialysis) 47 Acute inflammation: >10.00 48 Because ethnic data is not always readily available, this report includes an eGFR for both -Americans and non- Americans. The National Kidney Disease Education Program (NKDEP) does not endorse the use of the MDRD equation for patients that are not between the ages of 18 and 70, are , have extremes of body size, muscle mass, or nutritional status, or are non- or non-. According to the National Kidney Foundation, irrespective of diagnosis, the stage of the disease is based on the level of kidney function: Stage Description GFR(mL/min/1.73 m(2)) 1 Kidney damage with normal or decreased GFR 90 2 Kidney damage with mild decrease in GFR 60-89 3 Moderate decrease in GFR 30-59 4 Severe decrease in GFR 15-29 5 Kidney failure <15 (or dialysis) 49 Acute inflammation: >10.00 50 Because ethnic data is not always readily available, this report includes an eGFR for both -Americans and non- Americans. The National Kidney Disease Education Program (NKDEP) does not endorse the use of the MDRD equation for patients that are not between the ages of 18 and 70, are , have extremes of body size, muscle mass, or nutritional status, or are non- or non-. According to the National Kidney Foundation, irrespective of diagnosis, the stage of the disease is based on the level of kidney function: Stage Description GFR(mL/min/1.73 m(2)) 1 Kidney damage with normal or decreased GFR 90 2 Kidney damage with mild decrease in GFR 60-89 3 Moderate decrease in GFR 30-59 4 Severe decrease in GFR 15-29 5 Kidney failure <15 (or dialysis) 51 Acute inflammation: >10.00 52 Because ethnic data is not always readily available, this report includes an eGFR for both -Americans and non- Americans. The National Kidney Disease Education Program (NKDEP) does not endorse the use of the MDRD equation for patients that are not between the ages of 18 and 70, are , have extremes of body size, muscle mass, or nutritional status, or are non- or non-. According to the National Kidney Foundation, irrespective of diagnosis, the stage of the disease is based on the level of kidney function: Stage Description GFR(mL/min/1.73 m(2)) 1 Kidney damage with normal or decreased GFR 90 2 Kidney damage with mild decrease in GFR 60-89 3 Moderate decrease in GFR 30-59 4 Severe decrease in GFR 15-29 5 Kidney failure <15 (or dialysis) 53 Acute inflammation: >10.00 54 The above VANDANA screen is designed for the detection of antibodies to extractable nuclear antigen (VANDANA) in human serum. It is a combination test for the detection of antibodies to ACCIDENT INVESTIGATOR, Sm, SS-A (Ro), and SS-B (La) nuclear antigens. 55 -- REFERENCE VALUE -- <20.0 (Negative) Test Performed by: [address] [address] [place] Pointer: Ramy Lau III, M.D. 56 Because ethnic data is not always readily available, this report includes an eGFR for both -Americans and non- Americans. The National Kidney Disease Education Program (NKDEP) does not endorse the use of the MDRD equation for patients that are not between the ages of 18 and 70, are , have extremes of body size, muscle mass, or nutritional status, or are non- or non-. According to the National Kidney Foundation, irrespective of diagnosis, the stage of the disease is based on the level of kidney function: Stage Description GFR(mL/min/1.73 m(2)) 1 Kidney damage with normal or decreased GFR 90 2 Kidney damage with mild decrease in GFR 60-89 3 Moderate decrease in GFR 30-59 4 Severe decrease in GFR 15-29 5 Kidney failure <15 (or dialysis) 57 Because ethnic data is not always readily available, this report includes an eGFR for both -Americans and non- Americans. The National Kidney Disease Education Program (NKDEP) does not endorse the use of the MDRD equation for patients that are not between the ages of 18 and 70, are , have extremes of body size, muscle mass, or nutritional status, or are non- or non-. According to the National Kidney Foundation, irrespective of diagnosis, the stage of the disease is based on the level of kidney function: Stage Description GFR(mL/min/1.73 m(2)) 1 Kidney damage with normal or decreased GFR 90 2 Kidney damage with mild decrease in GFR 60-89 3 Moderate decrease in GFR 30-59 4 Severe decrease in GFR 15-29 5 Kidney failure <15 (or dialysis) 58 Because ethnic data is not always readily available, this report includes an eGFR for both -Americans and non- Americans. The National Kidney Disease Education Program (NKDEP) does not endorse the use of the MDRD equation for patients that are not between the ages of 18 and 70, are , have extremes of body size, muscle mass, or nutritional status, or are non- or non-. According to the National Kidney Foundation, irrespective of diagnosis, the stage of the disease is based on the level of kidney function: Stage Description GFR(mL/min/1.73 m(2)) 1 Kidney damage with normal or decreased GFR 90 2 Kidney damage with mild decrease in GFR 60-89 3 Moderate decrease in GFR 30-59 4 Severe decrease in GFR 15-29 5 Kidney failure <15 (or dialysis) 59 Because ethnic data is not always readily available, this report includes an eGFR for both -Americans and non- Americans. The National Kidney Disease Education Program (NKDEP) does not endorse the use of the MDRD equation for patients that are not between the ages of 18 and 70, are , have extremes of body size, muscle mass, or nutritional status, or are non- or non-. According to the National Kidney Foundation, irrespective of diagnosis, the stage of the disease is based on the level of kidney function: Stage Description GFR(mL/min/1.73 m(2)) 1 Kidney damage with normal or decreased GFR 90 2 Kidney damage with mild decrease in GFR 60-89 3 Moderate decrease in GFR 30-59 4 Severe decrease in GFR 15-29 5 Kidney failure <15 (or dialysis) 60 AOT-B12,TSH,FT4 61 AOT-B12,TSH,FT4 62 AOT-B12,TSH,FT4 63 Because ethnic data is not always readily available, this report includes an eGFR for both -Americans and non- Americans. The National Kidney Disease Education Program (NKDEP) does not endorse the use of the MDRD equation for patients that are not between the ages of 18 and 70, are , have extremes of body size, muscle mass, or nutritional status, or are non- or non-. According to the National Kidney Foundation, irrespective of diagnosis, the stage of the disease is based on the level of kidney function: Stage Description GFR(mL/min/1.73 m(2)) 1 Kidney damage with normal or decreased GFR 90 2 Kidney damage with mild decrease in GFR 60-89 3 Moderate decrease in GFR 30-59 4 Severe decrease in GFR 15-29 5 Kidney failure <15 (or dialysis) 64 AOT-B12,TSH,FT4 65 Because ethnic data is not always readily available, this report includes an eGFR for both -Americans and non- Americans. The National Kidney Disease Education Program (NKDEP) does not endorse the use of the MDRD equation for patients that are not between the ages of 18 and 70, are , have extremes of body size, muscle mass, or nutritional status, or are non- or non-. According to the National Kidney Foundation, irrespective of diagnosis, the stage of the disease is based on the level of kidney function: Stage Description GFR(mL/min/1.73 m(2)) 1 Kidney damage with normal or decreased GFR 90 2 Kidney damage with mild decrease in GFR 60-89 3 Moderate decrease in GFR 30-59 4 Severe decrease in GFR 15-29 5 Kidney failure <15 (or dialysis) 66 A metabolite of Naproxen, O-desmethylnaproxen, has been shown to interfere with the Jendrassik-Bosworth method for measuring total bilirubin. Samples from patients who have taken Naproxen have shown spurious elevation in total bilirubin levels. 67 Anion gap measurement may be of limited value in the presence of any alkalosis, especially in a combined acid base disorder. . 68 Because ethnic data is not always readily available, this report includes an eGFR for both -Americans and non- Americans. The National Kidney Disease Education Program (NKDEP) does not endorse the use of the MDRD equation for patients that are not between the ages of 18 and 70, are , have extremes of body size, muscle mass, or nutritional status, or are non- or non-. According to the National Kidney Foundation, irrespective of diagnosis, the stage of the disease is based on the level of kidney function: Stage Description GFR(mL/min/1.73 m(2)) 1 Kidney damage with normal or decreased GFR 90 2 Kidney damage with mild decrease in GFR 60-89 3 Moderate decrease in GFR 30-59 4 Severe decrease in GFR 15-29 5 Kidney failure <15 (or dialysis) 69 A metabolite of Naproxen, O-desmethylnaproxen, has been shown to interfere with the Jendrassik-Bosworth method for measuring total bilirubin. Samples from patients who have taken Naproxen have shown spurious elevation in total bilirubin levels. 70 Please note updated reference range, effective 05/23/10 71 A metabolite of Naproxen, O-desmethylnaproxen, has been shown to interfere with the Jendrassik-Michelle method for measuring total bilirubin. Samples from patients who have taken Naproxen have shown spurious elevation in total bilirubin levels. 72 Please note updated reference range, effective 05/23/10 73 Anion gap measurement may be of limited value in the presence of any alkalosis, especially in a combined acid base disorder. . 74 Because ethnic data is not always readily available, this report includes an eGFR for both -Americans and non- Americans. The National Kidney Disease Education Program (NKDEP) does not endorse the use of the MDRD equation for patients that are not between the ages of 18 and 70, are , have extremes of body size, muscle mass, or nutritional status, or are non- or non-. According to the National Kidney Foundation, irrespective of diagnosis, the stage of the disease is based on the level of kidney function: Stage Description GFR(mL/min/1.73 m(2)) 1 Kidney damage with normal or decreased GFR 90 2 Kidney damage with mild decrease in GFR 60-89 3 Moderate decrease in GFR 30-59 4 Severe decrease in GFR 15-29 5 Kidney failure <15 (or dialysis) Procedures Date CPT Code Description Status 08/27/2017 23240 Excision Tumor Soft Tissue Forearm/Wrist Subcutaneous < Completed 3 CM 08/27/2017 78756 Excision Tumor Soft Tissue Forearm/Wrist Subcutaneous < Completed 3 CM Encounters Type Date Location Provider CPT E/M Dx Office Visit 01/25/2018 [facility] S[place] 51550 M05.69 8:00a Of Deployment TechnicianVinceArrowtracie Z79.899 Z12.11 Office Visit 10/19/2017 8:00a [facility] Atul [facility] 85100 M05.69 [facility] Office Visit 07/29/2017 1:00p [place] [address] R22.32 C.M.A. Office Visit 07/16/2017 8:30a [facility] [place] 43054 M05.69 [facility] Z79.899 M71.332 Z23 Office Visit 04/13/2017 9:00a [facility] Of Atul Victor 59183 M05.69 [facility] ANIMAL BIOLOGIST Z79.899 Office Visit 01/05/2017 9:00a [facility] Of Atul Victor 93763 M06.89 [facility] ANIMAL BIOLOGIST Z79.899 Z23 Office Visit 10/06/2016 9:00a [facility] Of Atul Victor 11110 M06.89 [facility] [facility] ANIMAL BIOLOGIST M05.69 Z79.899 Z23 Office Visit 07/04/2016 8:30a [facility] [place] 22165 M06.89 Of Deployment Technician K82.4 Z79.899 K21.9 Office Visit 04/03/2016 8:00a [facility] Kenroy Hernandez 32916 M06.89 Of Justyna Epstein Z79.899 M05.69 Office Visit 12/31/2015 8:30a [facility] Of Atul Victor 18726 M06.89 [facility] [facility] ANIMAL BIOLOGIST Z79.899 M05.69 K82.4 Office Visit 10/01/2015 8:30a [facility] [place] 65635 M06.89 Of Deployment Technician K82.8 Z79.899 Z23 M05.69 K82.4 Office Visit 06/28/2015 8:30a [facility] Of Atul Victor ANIMAL BIOLOGIST 17223 714.0 Deployment Technician V58.69 Office Visit 05/25/2015 10:30a [facility] Atul Victor ANIMAL BIOLOGIST 55082 789.01 Of Deployment Technician 782.9 714.2 V58.69 789.31 Office Visit 03/29/2015 2:20p Neurosurgery Services Timo Singh, 82716 723.4 Of Deployment Technician M.DFreddy Office Visit 03/28/2015 8:30a [facility] Atul VictorSISSY 33864 714.2 Of Deployment Technician 420.90 427.31 360.11 V58.69 719.46 719.47 721.0 729.5 Office Visit 12/29/2014 10:00a [facility] Atul VictorSISSY 91841 360.11 Of Deployment Technician 420.90 729.4 427.31 V58.69 714.2 Office Visit 10/06/2014 10:40a [facility] William Tay M.D. 56563 714.0 Of Deployment Technician 360.11 420.90 V58.69 721.0 729.4 Office Visit 07/14/2014 10:20a [facility] William Tay M.D. 92452 714.0 Of Deployment Technician 360.11 420.90 V58.69 721.0 Office Visit 05/04/2014 10:20a [facility] William Tay M.D. 08336 714.0 Of Deployment Technician 360.11 420.90 V58.69 721.0 Office Visit 02/09/2014 1:40p [facility] William Tay M.D. 48886 714.0 Of Deployment Technician V58.69 360.11 420.90 721.0 Office Visit 11/17/2013 1:00p [facility] William Tay M.D. 39387 714.0 Of Deployment Technician V58.69 420.90 360.11 Office Visit 08/25/2013 10:40a [facility] William Tay M.D. 24090 714.0 Of Deployment Technician V58.69 v04.81 Office Visit 06/03/2013 11:20a [facility] William Tay M.D. 28087 714.0 Of Deployment Technician V58.69 420.90 360.11 Office Visit 04/08/2013 8:30a [facility] Landon Tamayo, 22612 331.83 Services Of Deployment Technician M.D. Office Visit 03/17/2013 10:20a [facility] William Tay 07699 714.0 Of Deployment Technician M.D. V58.69 360.11 420.90 Office Visit 03/15/2013 10:00a [facility] Landon Tamayo, 44826 780.93 Services Of Deployment Technician M.D. Office Visit 12/23/2012 10:40a [facility] William Tay 79329 714.0 Of Deployment Technician M.D. V58.69 420.90 780.93 Office Visit 09/28/2012 8:20a [facility] William Tay M.D. 92398 714.0 Of Deployment Technician V58.69 Office Visit 06/11/2012 11:20a [facility] William Tay M.D. 57689 714.0 Of Deployment Technician V58.69 420.90 427.31 Office Visit 04/30/2012 2:40p [facility] William Tay M.D. 00666 714.0 Of Deployment Technician V58.69 Office Visit 03/25/2012 8:20a [facility] William Tay M.D. 87253 714.0 Of Deployment Technician V58.69 420.90 427.31 600.00 Office Visit 01/01/2012 8:20a [facility] William Tay M.D. 52930 714.0 Of Deployment Technician V58.69 420.90 427.31 Office Visit 10/02/2011 8:40a [facility] William Tay M.D. 05324 714.0 Of Deployment Technician V58.69 360.11 600.00 Office Visit 07/03/2011 11:20a [facility] William Tay M.D. 92743 714.0 Of Deployment Technician V58.69 420.90 Office Visit 02/20/2011 9:20a [facility] William Tay M.D. 90869 714.0 Of Deployment Technician V58.69 Office Visit 12/26/2010 1:20p [facility] William Tay M.D. 63028 714.0 Of Deployment Technician V58.69 Plan of Care Future Appointment(s):08/02/2018 8:00 fabrizio - Zsofia Valente, ANIMAL BIOLOGIST at [facility]/28/2018 - Atul Victor, FNPM05.69 [facility] involv of organs and systemsComments:Well controlled on MtxYour inflammatory markers are within normal rangeYour latest laboratory tests indicate no detectable impairment of kidney and liver functions.Please, continue with the present dose of methotrexate. Continue with regular blood tests. You have a standing lab order on file. Please call the office if you develop any sign or symptoms of infection or acute change in your health.Follow up:3 month Labs prior to OVZ79.899 Other manager long term care (current) drug therapy
[2018-05-14 06:27] LABS: ABS Basophils 0 10^3/ul (0-0.2); ABS Eosinophils 0.1 10^3/ul (0-0.6); ABS Lymphocytes 1.3 10^3/ul (1.0-4.8); ABS Monocytes 1.1 10^3/ul (0-0.8); ABS Neutrophils 6.6 10^3/ul (1.5-7.7); ABS Nucleated RBC 0 10^3/ul; Eosinophil % 0.9 % (0-6); Hematocrit 47 % (42-52); Hemoglobin 16.3 g/dl (14.0-18.0); Mean Corpuscular HGB Conc 35 g/dl (31-36); Mean Corpuscular Hemoglobin 34 pg (27-31); Mean Corpuscular Volume 97 fL (80-94); Mean Platelet Volume 8.6 um3 (7.4-10.4); Nucleated Red Blood Cells % 0; Platelet Count 168 10^3/ul (150-450); Red Blood Count 4.86 10^6/ul (4.00-5.40); Red Cell Distribution Width 14 % (10.5-15); White Blood Count 9.1 10^3/ul (3.5-10.8)
[2018-05-14] MEDS ORDERED: Aspirin 81 mg CHEW TAB* 81 MG TAB.CHEW ONE (07:12)
[2018-05-14] MEDS ORDERED: Aspirin 81 mg CHEW TAB* 81 MG TAB.CHEW PO ONE (07:12)
--- NOTE | 2018-05-14 07:17 | ED ---
Progress - Progress Note Progress Note: CXR was negative - EKG/XRAY/CT XRAY: chest Xray Comments: no acute findings, pending official radiology report - Additional EKG/XRAY/Consults Time Called: 08:17 Consult/PCP: Dr. Lackey, hospitalist. Will admit pt for observation Course/Dx - Course Course Of Treatment: Patient is hard score 2-3 without active pain at this point. Pt was given aspirin. spoke with dr. lackey and he will be admitted for observation, further evaluation and treatment. Discharge - Sign-Out/Discharge Documenting (check all that apply): Receiving Sign-Out Receiving patient FROM: [facility] - Discharge Plan Condition: Stable Disposition: ADMITTED TO [facility] - Billing Disposition and Condition Condition: STABLE Disposition: Admitted to [facility]
--- NOTE | 2018-05-14 07:44 | ADMNOTE ---
Subjective Date of Service: 05/14/18 Interval History: ADMISSION HISTORY AND PHYSICAL EXAM: Allergies Allergy/AdvReac Type Severity Reaction Status Date / Time abatacept [From Orencia] Allergy Unknown Verified 05/14/18 05:44 Reaction Details infliximab [From Remicade] Allergy Unknown Verified 05/14/18 05:45 Reaction Details levofloxacin [From Levaquin] Allergy Unknown Verified 05/14/18 05:44 Reaction Details Home Medications Medication Instructions Recorded Confirmed Type Folic Acid 1 mg PO QAM 02/04/13 05/14/18 History Methotrexate Sodium [Methotrexate] 5 tab PO . WEEKLY 02/04/13 05/14/18 History Aspirin [Aspirin EC] 1 tab PO QAM 11/15/13 05/14/18 History Finasteride TAB* [Proscar TAB*] 5 mg PO QAM 11/15/13 05/14/18 History Glucosamine/D3/Boswellia [place] 1 tab PO BID 11/15/13 05/14/18 History [Osteo Bi-Flex Caplet] Lansoprazole CAP (NF) [Prevacid 15 mg PO QAM 11/15/13 05/14/18 History CAP (NF)] Min17/Nettle/Pumpkin/Saw Palme 1 cap PO QAM 11/15/13 05/14/18 History [Prostate Therapy Softgel] Mitchells-3/Dha/Epa/Fish Oil [Fish Oil] 1,000 mg PO QAM 06/10/17 05/14/18 History Polyethylene Glycol-Propylene 1 drop BOTH EYES DAILY 08/20/17 05/14/18 History [Systane Ultra 0.4-0.3 %] Diclofenac 1.3% PATCH (NF) 1 patch TOPICAL SEE INSTRUCTIONS 03/03/18 05/14/18 History [Flector 1.3% PATCH (NF)] HPI: The patient was i;n his u [facility] state of health until 05/13 in the AM he awoke with chest pain radiating to his L shoulder, no assoc. sx's. Pain is somewhat pleuritic. It lasted all day and was still present when he woke at his usual time 4 AM today. The pain is now gone. He never had similar pain before. Family History: Findings - F of esophageal ca, M of lung ca, both smoked. 1 sib of prostate ca. 3 sibs A&W. 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 Lives with his who is his SDM. Never smoked. Drinks 2 beers/day. Past Medical History: Findings - RA, hx pericarditis, L wrist cystectomy, IHR x 3 Review of Systems - Measurements Intake and Output: Intake and Output Last 24 Hours 05/12/18 05/13/18 05/14/18 05/15/18 06:59 06:59 06:59 06:59 Weight 185 lb 185 lb - Review of Systems Constitutional Symptoms: Negative: Weight Gain, Weight Loss, Weakness, Fatigue, Fever, Night Sweats, Unexplained Falls, Other Dermatology: Positive: Normal HEENT: Positive: Normal Eyes: Positive: Normal Thyroid: Positive: Normal Pulmonary: Positive: Normal Cardiology: Positive: Chest Pain Gastroenterology: Positive: Normal Genital - Urinary: Positive: Normal Genitourinary - Male: Positive: Prostatism Musculoskeletal: Negative: Joint Pain, Joint Stiffness, Arthritis, Osteoporosis, Low Back Pain , Sciatica, Joint Deformities, Kyphoscoliosis, Other Endocrinology: Positive: Normal Neurology: Positive: Normal Psychiatry: Positive: Normal Allergic/Immunologic: Negative: Hx Anaphylaxis, Hx Angioedema, Hx Environmental, Hx Seasonal, Athsma, Hx HIV, Immunocompromise, Swollen Glands LymphNodes, Other Objective Active Medications: Aspirin (Aspirin Ec Tab*) 81 mg PO QAM CIPRIANO Finasteride (Proscar Tab*) 5 mg PO QAM CIPRIANO Lansoprazole (Prevacid Cap (Nf)) 15 mg PO QAM CIPRIANO; Protocol Non-Formulary Medication (Folic Acid [Folic Acid]) 1 mg PO QAM CIPRIANO Non-Formulary Medication (Polyethylene Glycol-Propylene [Systane Ultra 0.4-0.3 % ]) 1 drop BOTH EYES DAILY [facility] Vital Signs - 8 hr 05/14/18 05/14/18 05/14/18 05:40 05:41 06:00 Temperature 98.1 F Pulse Rate 83 84 79 Respiratory 17 23 15 Rate Blood Pressure 160/104 160/104 (mmHg) O2 Sat by Pulse 98 96 97 Oximetry 05/14/18 05/14/18 05/14/18 06:12 06:41 07:00 Temperature Pulse Rate 82 79 75 Respiratory 22 19 11 Rate Blood Pressure 152/88 135/93 (mmHg) O2 Sat by Pulse 96 97 98 Oximetry 07/13/18 07:11 Temperature Pulse Rate 81 Respiratory 17 Rate Blood Pressure 136/91 (mmHg) O2 Sat by Pulse 98 Oximetry Oxygen Devices in Use Now: None Appearance: Alert, partly up on ED stretcher. In good spirits. Looks comfortable. Eyes: No Scleral Icterus Ears/Nose/Mouth/Throat: Clear Oropharnyx, Mucous Membranes Moist Neck: NL Appearance and Movements; NL JVP, No Thyroid Enlargement, Masses Respiratory: Symmetrical Chest Expansion and Respiratory Effort, Clear to Auscultation, Clear to Percussion Cardiovascular: NL Sounds; No Murmurs; No JVD, RRR, No Edema, - - No chest wall tenderness. Abdominal: NL Sounds; No Tenderness; No Distention, No Hepatosplenomegaly, - Extremities: No Edema, No Clubbing, Cyanosis, - Skin: No Rash or Ulcers, No Nodules or Sclerosis, - Neurological: Alert and Oriented x 3, NL Sensation Result Diagrams: 05/14/18 06:13 05/14/18 06:13 Assess/Plan/Problems-Billing Assessment: - Patient Problems (1) Chest pain Current Visit: Yes Status: Acute Code(s): R07.9 - CHEST PAIN, UNSPECIFIED SNOMED Code(s): 28883439 Comment: Atypical. ? recurrent pericarditis, subtle ECG changes. Echo, second troponin, exercise NST. Tele. Continue ASA. (2) History of pericarditis Current Visit: Yes Status: Acute Code(s): Z86.79 - PERSONAL HISTORY OF OTHER DISEASES OF THE CIRCULATORY SYSTEM SNOMED Code(s): 298864768913146 Comment: See above. (3) Rheumatoid arthritis Current Visit: Yes Status: Acute Code(s): M06.9 - RHEUMATOID ARTHRITIS, UNSPECIFIED SNOMED Code(s): 63537851 Comment: On MTX, folic acid. (4) Prostatism Current Visit: Yes Status: Acute Code(s): N40.0 - BENIGN PROSTATIC HYPERPLASIA WITHOUT LOWER URINRY TRACT SYMP SNOMED Code(s): 64158867 Comment: Continue finasteride. Pt gets yearly PSA. Note + fam hx of prostate ca. (5) History of esophagitis Current Visit: Yes Status: Acute Code(s): Z87.19 - PERSONAL HISTORY OF OTHER DISEASES OF THE DIGESTIVE SYSTEM SNOMED Code(s): 684944477715136 Comment: Continue lansoprazole.
--- NOTE | 2018-05-14 08:35 | RAD ---
Indication: Chest pain. 2 views of the chest including dual energy PA views demonstrate no mediastinal shift. Heart is of normal size and configuration. Lung sanchez are clear. IMPRESSION: No active cardiopulmonary disease is noted.
[2018-05-14] MEDS ORDERED: Folic Acid TAB* 1 MG PO SCH (09:00)
[2018-05-14] MEDS ORDERED: Artificial Tears* 15 ML BTL BOTH EYES SCH (09:00)
[2018-05-14] MEDS ORDERED: Aspirin EC TAB* 81 MG TAB.EC PO SCH (09:00)
[2018-05-14] MEDS ORDERED: Finasteride TAB* 5 MG PO SCH (09:00)
[2018-05-14] MEDS ORDERED: Omeprazole CAP* 20 MG PO SCH (09:00)
--- NOTE | 2018-05-14 14:12 | RAD ---
Edited for charges. INDICATION: Chest pain. Myocardial perfusion scan was performed utilizing 1 day protocol. Rest myocardial perfusion was performed after intravenous injection of 10.6 mCi of technetium 99m tetrofosmin. Treadmill stress study was obtained and the maximum heart rate achieved was 91% of the maximum predicted value. 25.5 mCi of technetium 99m tetrofosmin was injected for the stress portion of the study. There is homogeneous distribution of the radiotracer throughout the left ventricle. There is no evidence of ventricular dilatation. No evidence of any photopenic areas are noted. The ejection fraction at stress is 63%. Evaluation of wall motion demonstrates no focal wall motion abnormality. IMPRESSION: No evidence of fixed or reversible perfusion defect is identified. ASSESSMENT: Low risk Based on imaging criteria from ACC/AHA 2002 Guideline Update for the Management of Patients With Chronic Stable Angina Table 23. Noninvasive Risk Stratification. MTDD
[2018-05-14] MEDS ORDERED: Perflutren Lipid Microsphere* 3 ML VIAL ONE (15:40)
[2018-05-14] MEDS ORDERED: Ibuprofen TAB* 600 MG PO ONE (16:45)
[2018-05-14 17:41] VITALS: BP 138/93
--- NOTE | 2018-05-14 17:46 | ECHO ---
Patient: AUSTIN MARIE [facility] Rec#: [id number] : 1955 Date: 05/14/2018 Age: 63y Height: 177.8 cm / 70.0 in Weight: 83.9 kg / 184.9 lbs Sex: M BSA: 2 Room#: [facility] Admit Date#: 05/14/2018 Type: Inpatient Referring: Samuel Nolasco MD Reading: Irvin Cervantes MD Loading Dock Helper: Mell Frias RN RDCS CC: Teressa Masters MD Transthoracic Echocardiogram Indication: Chest pain BP: 143/91 HR: 70 Rhythm: NSR Findings History: HTN, rheumatoid arthritis, rheumatoid pericarditis in 2008 Technical Comments: The study quality is fair. The study is technically limited due to poor apical windows. Completed at 1640. Left Ventricle: The left ventricular chamber size is normal. Mild concentric left ventricular hypertrophy is observed. Global left ventricular wall motion and contractility are within normal limits. There is normal left ventricular systolic function. The estimated ejection fraction is 55-60%. There is an E to A reversal in the mitral valve flow pattern suggestive of diastolic dysfunction. Left Atrium: The left atrial chamber size is normal. Right Ventricle: The right ventricular cavity size is normal. The right ventricular global systolic function is normal. Right Atrium: The right atrial cavity size is normal. Aortic Valve: The aortic valve structure is not well visualized.in terms of leaflet number ascertainment. The aortic valve leaflets are mildly thickened. There is no evidence of aortic regurgitation. There is no evidence of aortic stenosis. Mitral Valve: The mitral valve leaflets are mildly thickened. There is no evidence of mitral regurgitation. Tricuspid Valve: The tricuspid valve leaflets are normal. There is trace tricuspid regurgitation. Unable to estimate the right ventricular systolic pressure. There is no tricuspid stenosis. Pulmonic Valve: The pulmonic valve structure is not well visualized. There is no evidence of pulmonic regurgitation. There is no pulmonic stenosis. Pericardium: There is no significant pericardial effusion. Aorta: There is moderate dilatation of the ascending aorta. There is no dilatation of the aortic arch. There is moderate dilatation of the aortic root. Pulmonary Artery: The main pulmonary artery is not well visualized. Venous: The inferior vena cava appears normal in size. There is a greater than 50% respiratory change in the inferior vena cava dimension. Contrast: Definity was used to optimize study. A total of 5 ml of diluted Definity was given IV. Conclusions There is normal left ventricular systolic function. The estimated ejection fraction is 55-60%. Global left ventricular wall motion and contractility are within normal limits. Mild concentric left ventricular hypertrophy is observed. There is an E to A reversal in the mitral valve flow pattern suggestive of diastolic dysfunction. Normal cardiac chamber sizes including normal left ventricular size. Functionally benign heart valves. No significant pericardial effusion. There is moderate dilatation of the ascending aorta. There is moderate dilatation of the aortic root. Since the prior echocardiogram completed 02/11/09, pertinent changes are prior small pericardial effusion noted and prior mildly decreased left ventricular size noted. Measurements Name Value Normal Range RVDdMajor (2D) 3.3 cm (2.2 - 4.4) RAd ISD 4CH 4.2 cm (3.4 - 4.9) RA (A4C)W 3.5 cm (2.9 - 4.6) IVSd (2D) 1.2 cm (0.6 - 1) LVPWd (2D) 1.1 cm (0.6 - 1) LVIDd (2D) 3.6 cm (3.6 - 5.4) Aortic Annulus 2 cm (1.4 - 2.6) Ao root diameter (2D) 4 cm (2.1 - 3.5) Ascending Ao 4.1 cm (2.1 - 3.4) Aortic arch 3.4 cm (1.8 - 3.4) LA dimension (AP) 2D 2.6 cm (2.3 - 3.8) LAd ISD 4CH 4.7 cm (2.9 - 5.3) LA ISD 4CH W 3.9 cm (2.5 - 4.5) Name Value Normal Range MV E-wave Vmax 0.59 m/sec - MV deceleration time 205 msec - MV A-wave Vmax 0.73 m/sec - MV E:A ratio 0.8 ratio - LV septal e' Vmax 0.08 m/sec - LV lateral e' Vmax 0.11 m/sec - LV E:e' septal ratio 7.4 ratio - LV E:e' lateral ratio 5.4 ratio - Name Value Normal Range AV Vmax 1.2 m/sec - AV VTI 25.6 cm - AV peak gradient 6 mmHg - AV mean gradient 3 mmHg - LVOT Vmax 0.86 m/sec - LVOT VTI 19.7 cm - LVOT peak gradient 3 mmHg - LVOT mean gradient 1.5 mmHg - JENI Vmax 0.61 m/sec - Name Value Normal Range IVC diameter 0.89 cm - Name Value Normal Range PV Vmax 0.77 m/sec -
--- NOTE | 2018-05-15 03:14 | DS ---
CC: Dr Hernandez; Dr. Masters DISCHARGE SUMMARY: DATE OF ADMISSION: 05/14/18 DATE OF DISCHARGE: 05/14/18 HISTORY OF PRESENT ILLNESS: This 63-year-old man presented with onset of chest pain over 24 hours before he presented in the emergency room. The pain was gone when I saw him, although it may have come back a small degree later. The rest of the history is detailed in the admission note. The patient was sent to telemetry unit. He was monitored. There were no significant arrhythmias and occasional PAC. He had an echocardiogram, which showed mild LVH, nl LVEF. He had a nuclear exercise stress test which was unremarkable with no evidence of fixed or reversible ischemic areas. The patient's CRP was 10.62 which is unusually high for him. A cyclic citrullinated peptide immunoglobulin G was sent off, the result of this should probably available in a few days. The patient was given a dose of ibuprofen 600 mg in the hospital and was instructed to take Aleve 500 mg b.i.d. at home. He will call his cycle manager Thursday to arrange for an early appointment. He will continue on all his other usual medications. FINAL DIAGNOSES: 1. Chest pain. 2. History of pericarditis. 3. Rheumatoid arthritis. 4. Prostatism. 5. History of esophagitis. DISCHARGE MEDICATIONS: 1. Folic acid 1 mg daily. 2. Methotrexate 5 mg daily on Sundays. 3. Prostate Therapy Softgel daily. 4. Osteo Bi-Flex b.i.d. 5. Lansoprazole 15 mg daily. 6. Finasteride 5 mg daily. 7. Aspirin 1 daily. 8. Fish oil 1000 mg daily. 9. Polyethylene glycol propylene eye drops, both eyes, 1 drop every day. 10. Diclofenac 1.3% patch. 11. Naproxen 500 mg b.i.d. [id number]/[facility] #: [id number] [facility]
== END 2018-05-14 17:18 | disposition home or self-care (01) ==
LOC: ED 05:37 → MEDTELE 07:25
PROVIDERS: ADMIT Internal Medicine; ATTEND Internal Medicine
DX: R07.9 Chest pain, unspecified (principal); M25.512 Pain in left shoulder; M54.2 Cervicalgia; Z86.79 Personal history of other diseases of the circulatory system; M06.9 Rheumatoid arthritis, unspecified; N40.0 Benign prostatic hyperplasia without lower urinary tract symptoms; K20.9 Esophagitis, unspecified; Z79.82 Long term (current) use of aspirin
CPT/HCPCS: 36415; 71046; 78452; 80053; 84484; 85025; 86140; 86200; 93005; 93017; 93306; 99284; A9270-GY; A9502; C8929; G0378

== ENCOUNTER 2019-02-21 09:54 | Emergency (ER) | payer BC ==
--- OUTSIDE RECORDS SUMMARY | 2019-02-21 10:11 | XMS REPORT | Continuity of Care Document ---
:1955 External Reference #:[id number] Author Name Kenroy Santoyo M.D. Address [address] [place] [address] Care Team Providers Name Role Phone Teressa Masters M.D. Primary Care Physician Unavailable Payers Date Identification Numbers Payment Provider Subscriber Policy Number: [id number] [facility] Dorothy Read PayID: [id number] [place] [id number] Advance Directives Description No Information Available Problems Active Problems Provider Date Essential hypertension Onset: Gastroesophageal reflux disease Onset: Large prostate Onset: Rheumatoid arthritis Onset: Nuclear senile cataract Kenroy Santoyo M.D. Onset: 12/11/2015 Refractive amblyopia Kenory Santoyo M.D. Onset: 12/11/2015 Tear film insufficiency Kenroy Santoyo M.D. 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 Fish Oil every day Kenroy Santoyo, 12/10/2015 1200mg Capsules M.D. Methotrexate 5 tabs on Thursday Unknown 2.5mg Tablets Folic Acid Unknown 1mg Tablets Lansoprazole Unknown 15mg Capsules DR Finasteride Unknown 5mg Tablets Osteo Bi-Flex Regular every day Unknown Strength 250-200mg Tablets Prostate Support every day Unknown 300-15mg Tablets History Medications Rituxan 1 every 9 mnths Unknown - 01/25/2018 500mg/50ML Solution Immunizations Description No Information Available Vital Signs Description No Information Available Results Description No Information Available Procedures Date Code Description Status 01/26/2018 20865 Est Patient Comprehensive Exam Completed 01/05/2018 12800 Patient No Show For Appt Completed 12/11/2015 95466 Est Patient Comprehensive Exam Completed 11/21/2013 36767 Est Patient Comprehensive Exam Completed 10/22/2012 18513 Determination Of Refractive State Completed 10/22/2012 30384 Est Patient Comprehensive Exam Completed 09/19/2011 18302 Est Patient Comprehensive Exam Completed 10/27/2008 35955 New Patient Comprehensive Exam Completed 08/18/2006 76332 New Patient Intermediate Exam Completed Encounters Type Date Location Provider Dx Diagnosis Office Visit 12/18/2008 Pat Parr, 364.01 Iridocyclitis Primary 8:30a frances WOODARD O.D. Office Visit 11/23/2008 Pat Parr, 364.01 Iridocyclitis Primary 8:30a frances WOODARD O.D. Office Visit 11/14/2008 Pat Parr, 364.01 Iridocyclitis Primary 9:15a frances WOODARD O.D. Office Visit 11/06/2008 Pat Parr, 364.01 Iridocyclitis Primary 8:00a frances WOODARD O.D. Office Visit 10/30/2008 Pat Parr, 364.01 Iridocyclitis Primary 8:15a , pc O.D. Plan of Treatment 01/28/2019 - Kenroy Santoyo M.D.H25.13 Age-related nuclear cataract, bilateralComments:Smoking can increase the risk of developing or worsening any eye related disease, as well as affect your overall health. If you are a smoker , we strongly recommend that you quit.If you are not a smoker, we strongly recommend that you do not start. You have been diagnosed with cataracts. If you are happy with your vision as it is now, then we will see you at your next scheduled appointment. If you feel like your vision is getting worse before your scheduled appointment, please call Alberta Lauren at [phone].Follow up:1 Year Follow Up Diagnostic Refraction You can expect to have your eyes dilated at your next visit.If Dr. Santoyo orders any additional testing , it may require extra time. We recommend that you bring sunglasses, as dilation drops often make you light sensitive until they wear off. We always recommend you bring someone to drive you home if you are uncomfortable driving with your eyes dilated. If you have any questions before your next visit, feel free to call our office at .H53.021 Refractive amblyopia, right eyeComments:You have Amblyopia in your right eye. You have never been able to see perfectly out of this eye.
[2019-02-21] MEDS ORDERED: Lidocaine PATCH 5%* 1 PATCH TRANSDERM ONE (10:16)
[2019-02-21] MEDS ORDERED: Ibuprofen TAB* 600 MG PO ONE (10:16)
[2019-02-21] MEDS ORDERED: oxyCODONE/Acetamin 5/325 MG* TAB PO ONE (10:16)
--- NOTE | 2019-02-21 10:23 | ED ---
Upper Extremity Pain - HPI Summary HPI Summary: 63-year-old male presents to the emergency department with complaint of right neck, shoulder and upper arm pain. He states that this began in July and has waxed and waned since then. For the last 3-4 weeks pain has been much more constant. It is not affected his strength and he denies any numbness in the extremity. He has been seeing his chiropractor regularly who suggested that perhaps he has a frayed tendon. He has been treated for spondylolysis. He has taken naproxen up to recently with benefit but now it doesn't seem to work. He is right-handed. - History of Current Complaint Chief Complaint: EDShoulderClavicGrey Stated Complaint: RIGHT SHOULDER PAIN PER PT Time Seen by Provider: 02/21/19 10:10 Hx Obtained From: Patient - Allergies/Home Medications Allergies/Adverse Reactions: Allergies Allergy/AdvReac Type Severity Reaction Status Date / Time abatacept [From Orencia] Allergy Unknown Verified 02/21/19 10:03 Reaction Details infliximab [From Remicade] Allergy Unknown Verified 07/29/18 09:48 Reaction Details levofloxacin [From Levaquin] Allergy Unknown Verified 07/29/18 09:48 Reaction Details PMH/Surg Hx/FS Hx/Imm Hx Endocrine/Hematology History: Denies: Hx Diabetes Cardiovascular History: Reports: Hx Angina, Hx Hypertension Denies: Hx Coronary Artery Disease, Hx Hypercholesterolemia, Hx Myocardial Infarction, Hx Pacemaker/ICD, Hx Valvular Heart Disease Respiratory History: Reports: Other Respiratory Problems/Disorders - Hx of bronchitis and pericarditis Denies: Hx Asthma, Hx Chronic Obstructive Pulmonary Disease (COPD) GI History: Reports: Hx Gastroesophageal Reflux Disease - ON MEDICATION FOR, Hx Hiatal Hernia, Other GI Disorders - 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 Musculoskeletal History: Denies: Hx Arthritis, Hx Osteoporosis, Hx Scoliosis Sensory History: Reports: Hx Cataracts - BILATERAL, Hx Contacts or Glasses - READING GLASSES Denies: Hx Hearing Aid Opthamlomology History: Reports: Hx Cataracts - BILATERAL, Hx Contacts or Glasses - READING GLASSES Neurological History: Reports: Hx Transient Ischemic Attacks (TIA) - Xs 2 - 2008 ( MRI & CT DONE) Denies: Hx Headaches, Other Neuro Impairments/Disorders Psychiatric History: Denies: Hx Panic Disorder - Surgical History Surgery Procedure, Year, and Place: 3- INGUINAL HERNIA; CARPAL TUNNEL- Rt; ACHILLES TENDON REPAIR-Lt; TONSILECTOMY; Hx Anesthesia Reactions: No Infectious Disease History: No Infectious Disease History: Denies: Hx Clostridium Difficile, Hx Hepatitis, Hx Human Immunodeficiency Virus (HIV), Hx of Known/Suspected MRSA, Hx Shingles, Hx Tuberculosis, Traveled Outside the [place] in Last 30 Days - Family History Known Family History: Negative: Hypertension - Social History Lives: With Family Alcohol Use: Daily Alcohol Amount: @2 beers daily Substance Use Type: Reports: None Substance Use Comment - Amount & Last Used: ONCE IN A WHILE-LAST USED 05/07/18 Smoking Status (MU): Never Smoked Tobacco Have You Smoked in the Last Year: No Review of Systems Constitutional: Negative Positive: Arthralgia, Myalgia. Negative: Decreased ROM, Edema Negative: Weakness, Paresthesia, Numbness Psychological: Normal All Other Systems Reviewed And Are Negative: Yes Physical Exam Triage Information Reviewed: Yes Vital Signs On Initial Exam: Initial Vitals Temp Pulse Resp BP Pulse Ox 98.1 F 84 20 170/103 99 02/21/19 10:00 02/21/19 10:00 02/21/19 10:00 02/21/19 10:00 02/21/19 10:00 Vital Signs Reviewed: Yes Appearance: Positive: Well-Nourished, Pain Distress - mild Skin: Positive: Warm, Skin Color Reflects Adequate Perfusion, Dry ENT: Positive: Hearing grossly normal Neck: Positive: Supple, Nontender, No Lymphadenopathy Respiratory/Lung Sounds: Positive: Clear to Auscultation Cardiovascular: Positive: RRR Musculoskeletal: Positive: Other - Full range of motion in the right upper extremity without crepitance or tenderness to palpation. There is exacerbation of discomfort with flexion of the head towards the right. Extension away from the extremity or towards the left to relieve symptoms. Normal strength and sensation in the hand and upper extremity. Neurological: Positive: Normal, Sensory/Motor Intact, Alert, Oriented to Person Place, Time AVPU Assessment: Alert Diagnostics - Vital Signs Vital Signs Temp Pulse Resp BP Pulse Ox 02/21/19 10:00 98.1 F 84 20 170/103 99 - Laboratory Lab Statement: Any lab studies that have been ordered have been reviewed, and results considered in the medical decision making process. - Radiology C spine Radiology Interpretation Completed By: Radiologist - IMPRESSION: Degenerative disc disease is present at C5-C6 and C6-C7. Course/Dx - Course Course Of Treatment: Nurse's notes reviewed. Patient's blood pressure is elevated. His x-ray shows degenerative change. He is experiencing radiculopathy which was greatly improved by lidocaine patch and oral medications. We will refer him to neurosurgery. Continue topical lidocaine and prescribed Mobic. - Diagnoses Differential Diagnosis/HQI/PQRI: Positive: Strain, Sprain, Other - radiculopathy Provider Diagnoses: Cervical spondylosis with radiculopathy Discharge - Sign-Out/Discharge Documenting (check all that apply): Patient Departure Patient Received Moderate/Deep Sedation with Procedure: No - Discharge Plan Condition: Improved Disposition: HOME Prescriptions: Meloxicam(NF) [Mobic(NF)] 7.5 mg PO DAILY #30 tab Patient Education Materials: Cervical Radiculopathy (ED) Referrals: Teressa Lemos MD [Primary Care Provider] - Pamela Haas MD [Medical Doctor] - Additional Instructions: Continue topical lidocaine patches which can be obtained [id number] under the name hoa shine. Prescription strength patches can be prescribe your doctor and must be preauthorized. Return with numbness/weakness, worse, new symptoms or other concerns. Call the neurosurgeon today to schedule follow-up appointment. Call your doctor today to schedule reevaluation and recheck of your blood pressure. - Billing Disposition and Condition Condition: IMPROVED Disposition: Home - Attestation Statements Document Initiated by Scribe: No
[2019-02-21 11:42] VITALS: BP 159/103
[2019-02-21] MEDS ORDERED: Lidocaine Patch REMOVE* 1 NOTE MISC SCH (21:00)
== END 2019-02-21 11:36 | disposition home or self-care (01) ==
LOC: ED 09:54
DX: M47.812 Spondylosis without myelopathy or radiculopathy, cervical region (principal); M50.322 Other cervical disc degeneration at C5-C6 level; I10 Essential (primary) hypertension; K21.9 Gastro-esophageal reflux disease without esophagitis; K44.9 Diaphragmatic hernia without obstruction or gangrene; Z88.8 Allergy status to other drugs, medicaments and biological substances; Z88.3 Allergy status to other anti-infective agents; Z79.899 Other long term (current) drug therapy; Z86.73 Personal history of transient ischemic attack (TIA), and cerebral infarction without residual deficits
CPT/HCPCS: 72040; 99282; A9270-GY

== ENCOUNTER 2019-07-01 12:13 | Emergency (ER) | payer MEDICARE, BC ==
[2019-07-01 12:54] VITALS: BP 163/110
--- NOTE | 2019-07-01 13:24 | UC ---
Dizzy HPI HPI Summary: WOKE UP THIS MORNING FEELING DIZZY AND OVERALL UNWELL. HAS A MILD HEADACHE AND SLIGHT NAUSEA. DENIES CHEST PAIN, SHORTNESS OF BREATH, FEVER. NOTED HIS BLOOD PRESSURE WAS ELEVATED AT ABOUT 160/110. DOES NOT TAKE ANY MEDICATION FOR HIGH BLOOD PRESSURE. DIZZINESS HAS BEEN CONSTANT AND IS NOT POSITIONAL. H/O TIA MOST RECENTLY ABOUT 10 YEARS AGO. - History Of Current Complaint Chief Complaint: UCDizziness Stated Complaint: DIZZINESS HBP[ Time Seen by Provider: 07/01/19 13:08 Hx Obtained From: Patient, Family/Accounting Methods Analyst - Onset/Duration: Sudden Onset, Lasting Hours, Still Present Timing: Constant Severity Initially: Moderate Severity Currently: Moderate Pain Intensity: 3 Pain Scale Used: 0-10 Numeric Character: Lightheaded, Dizzy Aggravating Factor(s): Nothing Alleviating Factor(s): Nothing Associated Signs And Symptoms: Positive: Nausea. Negative: Chest Pain, SOB - Allergies/Home Medications Allergies/Adverse Reactions: Allergies Allergy/AdvReac Type Severity Reaction Status Date / Time abatacept [From Orencia] Allergy Unknown Verified 07/01/19 12:55 Reaction Details infliximab [From Remicade] Allergy Unknown Verified 07/01/19 12:55 Reaction Details levofloxacin [From Levaquin] Allergy Unknown Verified 07/01/19 12:55 Reaction Details PMH/Surg Hx/FS Hx/Imm Hx Cardiovascular History: Hypertension Neurological History: TIA - Surgical History Surgical History: Yes Surgery Procedure, Year, and Place: 3- INGUINAL HERNIA; CARPAL TUNNEL- Rt; ACHILLES TENDON REPAIR-Lt; TONSILECTOMY; - Family History Known Family History: Negative: Cardiac Disease, Hypertension - Social History Alcohol Use: Daily Alcohol Amount: @2 beers daily Substance Use Type: Marijuana Substance Use Comment - Amount & Last Used: occas Smoking Status (MU): Never Smoked Tobacco Have You Smoked in the Last Year: No - Immunization History Most Recent Influenza Vaccination: 2016/2016 Review of Systems All Other Systems Reviewed And Are Negative: Yes Constitutional: Positive: Other - FEELS "OFF" Respiratory: Positive: Negative Cardiovascular: Positive: Negative Gastrointestinal: Positive: Nausea Neurological: Positive: Headache, Other - DIZZY Physical Exam Triage Information Reviewed: Yes Appearance: Well-Appearing, No Pain Distress, Well-Nourished Vital Signs: Initial Vital Signs Temp 99 F 08/30/19 12:50 Pulse 81 07/01/19 12:50 Resp 18 07/01/19 12:50 BP 163/110 07/01/19 12:50 Pulse Ox 99 07/01/19 12:50 Vital Signs Reviewed: Yes Eyes: Positive: Conjunctiva Clear ENT: Positive: Hearing grossly normal Neck: Positive: Supple Respiratory Exam: Normal Cardiovascular Exam: Normal Abdomen Description: Positive: Soft Musculoskeletal: Positive: No Edema Neurological: Positive: Alert Psychological: Positive: Age Appropriate Behavior Skin: Negative: Rashes Diagnostics - EKG Cardiac Rate: NL - 76BPM Cardiac Rhythm: Sinus: Normal Ectopy: None ST Segment: Normal Dizzy Course/Dx - Course Course Of Treatment: EKG TODAY UNREMARKABLE. PATIENT WITH UNTREATED HYPERTENSION AND SUDDEN ONSET OF DIZZINESS, NAUSEA AND HEADACHE WITH A HISTORY OF TIA IN THE PAST. PATIENT REQUIRES HIGHER LEVEL OF SERVICE THAN WHAT IS AVAILABLE IN THE URGENT CARE. WILL S[place] [facility] [place]. - Differential Dx/Diagnosis Provider Diagnosis: Dizzy, Hypertension - Physician Notifications Discussed Patient Care With: Bunny Mata - [place] [facility] Time Discussed With Above Provider: 13:25 Instructed by Provider To: MD Will See In ED Discharge ED - Sign-Out/Discharge Documenting (check all that apply): Patient Departure All imaging exams completed and their final reports reviewed: No Studies - Discharge Plan Condition: Stable Disposition: TRANS HIGHER LVL OF CARE FAC Referrals: Teressa Lemos MD [Primary Care Provider] - - Billing Disposition and Condition Condition: STABLE Disposition: Trans Higher Lvl of Care Fac
== END 2019-07-01 13:53 | disposition short-term general hospital (02) ==
LOC: UCEAST 12:13
DX: R42 Dizziness and giddiness (principal); I10 Essential (primary) hypertension; Z86.73 Personal history of transient ischemic attack (TIA), and cerebral infarction without residual deficits
CPT/HCPCS: 93005; 99213; G0463

== ENCOUNTER 2019-07-01 14:09 | Emergency (ER) | payer MEDICARE, BC ==
[2019-07-01] MEDS ORDERED: Meclizine TAB* 12.5 MG PO ONE (14:18)
--- NOTE | 2019-07-01 14:19 | ED ---
Hypertension - HPI Summary HPI Summary: This patient is a 64 year old M KELSI via EMS to ED sent from with a chief complaint of right-sided headache since waking up this morning. Patient never gets headaches in the morning. The headache is described as an ache. At urgent care, patient had a BP of 160/101. Patient recently saw his PCP who told him to monitor his BP but stated he did not need medication yet. Patient also reports off-balance dizziness with standing. Patient denies blurred vision and visual changes, neck pain, chest pain, shortness of breath, or weakness/numbness. The patient rates the pain 3/10 in severity. Symptoms aggravated by nothing. Symptoms alleviated by nothing. 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 Patient also has rheumatoid arthritis. EMS reported a blood sugar of 112. - History of Current Complaint Chief Complaint: EDHypertension Stated Complaint: HEADACHE/HIGH BP PER EMS Hx Obtained From: Patient, EMS Onset/Duration: Started Hours Ago - Waking up this morning, Still Present Timing: Constant, Lasting Hours - Since waking up this morning Aggravating Factor(s): Nothing Alleviating Factor(s): Nothing Associated Signs & Symptoms: Negative - CP, vision changes, numbness, weakness, SOB, Headaches, Dizziness - Allergies/Home Medications Allergies/Adverse Reactions: Allergies Allergy/AdvReac Type Severity Reaction Status Date / Time abatacept [From Orencia] Allergy Unknown Verified 07/01/19 14:36 Reaction Details infliximab [From Remicade] Allergy Unknown Verified 07/01/19 14:36 Reaction Details levofloxacin [From Levaquin] Allergy Unknown Verified 07/01/19 14:36 Reaction Details Home Medications: Home Medications metFORMIN* [Glucophage 1000 MG TAB *] 1,000 mg PO BID 07/01/19 [History Confirmed 07/01/19] riTUXimab* [Rituxan*] 100 mg IV DAILY 07/01/19 [History Confirmed 07/01/19] PMH/Surg Hx/FS Hx/Imm Hx Endocrine/Hematology History: Denies: Hx Diabetes Cardiovascular History: Reports: Hx Angina, Hx Hypertension - no meds Denies: Hx Coronary Artery Disease, Hx Hypercholesterolemia, Hx Myocardial Infarction, Hx Pacemaker/ICD, Hx Valvular Heart Disease Respiratory History: Reports: Other Respiratory Problems/Disorders - Hx of bronchitis and pericarditis Denies: Hx Asthma, Hx Chronic Obstructive Pulmonary Disease (COPD) GI History: Reports: Hx Gastroesophageal Reflux Disease - ON MEDICATION FOR, Hx Hiatal Hernia, Other GI Disorders - 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 Musculoskeletal History: Reports: Hx Rheumatoid Arthritis Denies: Hx Arthritis, Hx Osteoporosis, Hx Scoliosis Sensory History: Reports: Hx Cataracts - BILATERAL, Hx Contacts or Glasses - READING GLASSES Denies: Hx Hearing Aid Opthamlomology History: Reports: Hx Cataracts - BILATERAL, Hx Contacts or Glasses - READING GLASSES Neurological History: Reports: Hx Transient Ischemic Attacks (TIA) - Xs 2 - 2008 ( MRI & CT DONE) Denies: Hx Headaches, Other Neuro Impairments/Disorders Psychiatric History: Denies: Hx Panic Disorder - Surgical History Surgery Procedure, Year, and Place: 3- INGUINAL HERNIA; CARPAL TUNNEL- Rt; ACHILLES TENDON REPAIR-Lt; TONSILECTOMY; Hx Anesthesia Reactions: No Infectious Disease History: No Infectious Disease History: Denies: Hx Clostridium Difficile, Hx Hepatitis, Hx Human Immunodeficiency Virus (HIV), Hx of Known/Suspected MRSA, Hx Shingles, Hx Tuberculosis, Traveled Outside the [place] in Last 30 Days - Family History Known Family History: Negative: Cardiac Disease, Hypertension, Diabetes - Social History Alcohol Use: Daily Alcohol Amount: @2 beers daily Hx Substance Use: Yes Substance Use Type: Reports: Marijuana Substance Use Comment - Amount & Last Used: occas Hx Tobacco Use: No Smoking Status (MU): Never Smoked Tobacco Have You Smoked in the Last Year: No Review of Systems Negative: Blurred Vision Negative: Chest Pain Negative: Shortness Of Breath Musculoskeletal: Negative - Neck pain Neurological: Other - Dizziness Positive: Headache. Negative: Weakness, Numbness All Other Systems Reviewed And Are Negative: Yes Physical Exam - Summary Physical Exam Summary: VITAL SIGNS: Reviewed. GENERAL: Patient is a well-developed and nourished male who is lying comfortable in the stretcher. Patient is not in any acute respiratory distress. HEAD AND FACE: No signs of trauma. No ecchymosis, hematomas or skull depressions. No sinus tenderness. EYES: PERRLA, EOMI x 2, No injected conjunctiva, no nystagmus. EARS: Hearing grossly intact. Ear canals and tympanic membranes are within normal limits. MOUTH: Oropharynx within normal limits. NECK: Supple, trachea is midline, no adenopathy, no JVD, no carotid bruit, no c- spine tenderness, neck with full ROM. CHEST: Symmetric, no tenderness at palpation. LUNGS: Clear to auscultation bilaterally. No wheezing or crackles. CVS: Regular rate and rhythm, S1 and S2 present, no murmurs or gallops appreciated. ABDOMEN: Soft, non-tender. No signs of distention. No rebound, no guarding, and no masses palpated. Bowel sounds are normal. EXTREMITIES: FROM in all major joints, no edema, no cyanosis or clubbing. NEURO: Alert and oriented x 3. No acute neurological deficits. Speech is normal and follows commands. SKIN: Dry and warm. GCS: 15 Triage Information Reviewed: Yes Vital Signs On Initial Exam: Initial Vitals Temp Pulse Resp BP Pulse Ox 97.8 F 87 16 177/108 96 07/01/19 14:12 07/01/19 14:12 07/01/19 14:12 07/01/19 14:12 07/01/19 14:12 Vital Signs Reviewed: Yes Diagnostics - Vital Signs Vital Signs Temp Pulse Resp BP Pulse Ox 07/01/19 14:12 97.8 F 87 16 177/108 96 - Laboratory Result Diagrams: 07/01/19 14:35 07/01/19 14:35 Lab Statement: Any lab studies that have been ordered have been reviewed, and results considered in the medical decision making process. - Radiology CXR Radiology Interpretation Completed By: Radiologist Summary of Radiographic Findings: Stigmata of probable obstructive lung disease. No acute pulmonary or cardiac process evident. Dr. Mata has reviewed this radiology report. - CT Brain CT Interpretation Completed By: Radiologist Summary of CT Findings: Negative unenhanced head CT. Dr. Mata has reviewed this radiology report. - EKG 1427 Cardiac Rate: NL - 81 BPM EKG Rhythm: Sinus Rhythm ST Segment: Normal Ectopy: None EKG Comparison: No Significant Change Summary of EKG Findings: NSR 81 BPM, no ST elevations, normal axis, similar to previous. Re-Evaluation - Re-Evaluation First Eval Re-Evaluation Time: 15:56 Change: Improved Comment: Patient's BP is controlled, OHARA and dizziness are resolved. Patient will be discharged home with dx of increased blood pressure, OHARA, and dizziness, and instructions to follow-up with his PCP. Patient understands and agrees with this plan. Hypertension Course/Dx - Course Assessment/Plan: This patient is a 64 year old M BIBA via EMS to ED sent from with a chief complaint of right-sided headache since waking up this morning. Patient never gets headaches in the morning. The headache is described as an ache. At urgent care, patient had a BP of 160/101. Patient recently saw his PCP who told him to monitor his BP but stated he did not need medication yet. Patient also reports off-balance dizziness with standing. Patient denies blurred vision and visual changes, neck pain, chest pain, shortness of breath, or weakness/numbness. The patient rates the pain 3/10 in severity. Symptoms aggravated by nothing. Symptoms alleviated by nothing. 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 Patient also has rheumatoid arthritis. EMS reported a blood sugar of 112. Blood work without any significant abnormality except for glucose of 106and the urinalysis is negative for UTI. Head CT impression: Negative for acute intracranial pathology. Chest x-ray impression: Stigmata for probable obstructive lung disease. No acute pulmonary or cardiac process. In the ED course the patient was given meclizine for dizziness and labetalol for hypertension. After medications the patients blood pressure is 127/89. The patient also reports that his symptoms have resolved. Since the patient does have any other complaints, and the patient is asymptomatic he will be discharged home with follow-up with PCP. Patient was given instructions to return to the emergency department if he develops any other symptoms. He understands and agrees. - Diagnoses Provider Diagnoses: Blood pressure increase diastolic, Headache, Dizziness Discharge ED - Sign-Out/Discharge Documenting (check all that apply): Patient Departure - Discharge Patient Received Moderate/Deep Sedation with Procedure: No - Discharge Plan Condition: Stable Disposition: HOME Patient Education Materials: Acute Headache (ED), Hypertension (ED), Dizziness (ED) Referrals: Teressa Lemos MD [Primary Care Provider] - 3 Days Additional Instructions: FOLLOW UP WITH YOUR PRIMARY CARE PROVIDER IN 3 DAYS. RETURN TO THE ED FOR ANY WORSENING OR NEW SYMPTOMS. - Billing Disposition and Condition Condition: STABLE Disposition: Home - Attestation Statements Document Initiated by Scribe: Yes Documenting Scribe: Brent Christina Provider For Whom Scribe is Documenting (Include Credential): Bunny Mata MD Scribe Attestation: Brent Childs, scribed for Bunny Mata MD on 07/01/19 at 1845. Scribe Documentation Reviewed: Yes Provider Attestation: The documentation as recorded by the scribe, Brent Christina accurately reflects the service I personally performed and the decisions made by me, Bunny Mata MD Status of Scribe Document: Viewed
[2019-07-01] MEDS: Labetalol IV* 5 MG/ML 20 ML VIAL IV PUSH ONE ×2 (14:32→14:46)
[2019-07-01 14:44] LABS: ABS Lymphocytes 0.9 10^3/ul (1.0-4.8); ABS Monocytes 0.7 10^3/ul (0-0.8); ABS Neutrophils 5.8 10^3/ul (1.5-7.7); Eosinophil % 0.3 %; Hematocrit 49 % (42-52); Hemoglobin 16.8 g/dL (14.0-18.0); Mean Corpuscular HGB Conc 34 g/dL (31-36); Mean Corpuscular Hemoglobin 33 pg (27-31); Mean Corpuscular Volume 97 fL (80-94); Mean Platelet Volume 8.3 fL (7.4-10.4); Platelet Count 188 10^3/uL (150-450); Red Blood Count 5.04 10^6 /uL (4.18-5.48); Red Cell Distribution Width 13 % (10-15); White Blood Count 7.5 10^3/uL (3.5-10.8)
[2019-07-01 14:50] LABS: Urine Appearance Clear; Urine Bilirubin Negative (Negative); Urine Blood Negative (Negative); Urine Color Straw; Urine Glucose Negative (Negative); Urine Ketones Trace (Negative); Urine Nitrite Negative (Negative); Urine Protein Negative (Negative); Urine Specific Gravity 1.005 (1.010-1.030); Urine Urobilinogen Negative (Negative)
[2019-07-01 15:06] LABS: Albumin 4.7 g/dL (3.2-5.2); Albumin/Globulin Ratio 2.4 (1-3); BUN/Creatinine Ratio 16.5 (8-20); C Reactive Protein 1.17 mg/L (<8.01); Calcium 9.9 mg/dL (8.6-10.3); EGFR African American 109.5 (>60); EGFR Non-African American 90.5 (>60); Potassium 4.1 mmol/L (3.5-5.0); Total Bilirubin 0.9 mg/dL (0.2-1.0); Total Protein 6.7 g/dL (6.4-8.9)
[2019-07-01 15:32] LABS: TSH (Thyroid Stimulating Horm) 2.47 mcIU/mL (0.34-5.60)
[2019-07-01 15:45] VITALS: BP 127/89
== END 2019-07-01 16:13 | disposition home or self-care (01) ==
LOC: ED 14:09
DX: R51 Headache (principal); R42 Dizziness and giddiness; I10 Essential (primary) hypertension; K21.9 Gastro-esophageal reflux disease without esophagitis; M06.9 Rheumatoid arthritis, unspecified; Z79.82 Long term (current) use of aspirin; Z79.84 Long term (current) use of oral hypoglycemic drugs; Z79.899 Other long term (current) drug therapy; Z88.1 Allergy status to other antibiotic agents; Z88.8 Allergy status to other drugs, medicaments and biological substances
CPT/HCPCS: 36415; 70450; 71046; 80053; 81003; 82550; 83605; 83735; 84443; 84484; 85025; 85730; 86140; 93005; 96374; 99213; 99284; A9270-GY; G0463